=== PATIENT | female | born 1960 | race Caucasian/White ===

== ENCOUNTER 2017-10-15 15:59 | Inpatient (IN) ==
[2017-10-15] MEDS ORDERED: NS 1,000 ML IV ONE (16:18)
[2017-10-15] MEDS ORDERED: CEFEPIME 1 GM in NS 100 ML IV ONE (16:18)
[2017-10-15] MEDS: SALINE FLUSH 10ml SYRINGE IVF PRN (16:25)
--- NOTE | 2017-10-15 17:04 | XRay Report ---
Indication: left knee pain swelling PROCEDURE: XR knee LT 3V: Encounter: Initial Comparison: None Findings: There is no acute fracture, dislocation or malalignment identified. Prior internally fixed patellar fracture with an ununited fragment from the inferior pole. Mild osteoarthritis. No obvious joint effusion. Impression: No acute osseous abnormality. .
--- NOTE | 2017-10-15 17:20 | Emergency Department Report ---
Extremity Problem HPI - General Chief complaint: Extremity Problem,Nontraumatic Stated complaint: possible infection knee - Related Data Home Medications Medication Instructions Recorded Confirmed Acetaminophen 650 mg PO TID 10/15/17 10/15/17 Acetaminophen [Acetaminophen Extra 1,000 mg PO Q8H PRN 10/15/17 10/15/17 Strength] Artificial Tears [Tears Naturale] 2 drops EACH EYE BID PRN 10/15/17 10/15/17 Aspirin [Low Dose Aspirin EC] 81 mg PO DAILY 10/15/17 10/15/17 Bisacodyl EC TAB [Dulcolax] 10 mg PO DAILY 10/15/17 10/15/17 Bisacodyl Supp [Dulcolax] 10 mg RECTALLY PRN PRN 10/15/17 10/15/17 Cetirizine HCl [Zyrtec] 10 mg PO DAILY 10/15/17 10/15/17 Divalproex Sodium [Depakote] 1,000 mg PO 10/15/17 10/15/17 Divalproex Sodium [Depakote] 1,500 mg PO HS 10/15/17 10/15/17 Guaifenesin Oral Liq [Robitussin 200 mg PO Q4H PRN 10/15/17 10/15/17 Liq] Ibuprofen [Ibu] 600 mg PO BID 10/15/17 10/15/17 Ibuprofen [Ibu] 600 mg PO Q8H PRN 10/15/17 10/15/17 Insulin Aspart [Novolog Flexpen] 3 unit SQ WS 10/15/17 10/15/17 Insulin Aspart [Novolog Flexpen] 5 unit SQ BIDBL 10/15/17 10/15/17 Levofloxacin [Levaquin] 250 mg PO HS 10/15/17 10/15/17 Mag Hydrox/Aluminum Hyd/Simeth 30 ml PO Q4H PRN 10/15/17 10/15/17 [Alum-Mag Hydroxide-Simeth Liq] Magnesium Citrate [Citroma] 296 ml PO Q2D PRN 10/15/17 10/15/17 Magnesium Hydroxide [Milk of 30 ml PO DAILY PRN 10/15/17 10/15/17 Magnesia] Magnesium Hydroxide [Milk of 30 ml PO MOWEFR 10/15/17 10/15/17 Magnesia] Metformin HCl [Glucophage] 1,000 mg PO BID 10/15/17 10/15/17 Quetiapine Fumarate [Seroquel] 300 mg PO TID 10/15/17 10/15/17 Simvastatin [Zocor] 40 mg PO HS 10/15/17 10/15/17 Tramadol [Ultram] 50 mg PO Q4-6HPRN PRN 10/15/17 10/15/17 Ziprasidone HCl [Geodon] 40 mg PO WL 10/15/17 10/15/17 Ziprasidone HCl [Geodon] 80 mg PO BID 10/15/17 10/15/17 Allergies Allergy/AdvReac Type Severity Reaction Status Date / Time haloperidol [From Haldol] Allergy Verified 10/15/17 16:48 lithium Allergy Verified 10/15/17 16:48 Penicillins Allergy Verified 10/15/17 16:48 Sulfa (Sulfonamide Allergy Verified 10/15/17 16:48 Antibiotics) tetracycline Allergy Verified 10/15/17 16:48 PFS Patient Stated Medical History Other Cardiology Yes: hyperlipidemia Diabetes Mellitus Type 2 Yes Other GI Yes: constipation Other Musculoskeletal Yes: osteopenia,osteochondrosis(rt. foot) Other Infectious Yes: knee infection Schizophrenia Yes: schizo affective - Social History Smoking status: Current every day smoker Course Vital Signs Temperature 98.2 F 10/15/17 16:00 Pulse Rate 118 H 10/15/17 16:00 Respiratory Rate 20 10/15/17 16:00 Blood Pressure 131/58 10/15/17 16:00 Pulse Oximetry 94 10/15/17 16:00 Temperature 98.2 F 10/15/17 16:00 Pulse Rate 118 H 10/15/17 16:00 Respiratory Rate 20 10/15/17 16:00 Blood Pressure 131/58 10/15/17 16:00 Pulse Oximetry 94 10/15/17 16:00 Extremity Problem, Nontraumati - Lab Data Result diagrams: 10/15/17 16:26 10/15/17 16:26 Lab Results 10/15/17 10/15/17 Range/Units 16:26 16:26 WBC 9.9 (4.5-11.0) T/MM3 RBC 3.42 L (4.00-5.20) M/MM3 Hgb 12.0 (12-16) GM/DL Hct 35.0 L (36-46) % MCV 102.3 H (80-100) UM3 MCH 35.1 H (26-34) UUG MCHC 34.3 (31-37) GM/DL RDW Std Deviation 48.3 (36.9-50.2) FL Plt Count 250 (130-400) T/MM3 MPV 9.8 (9.4-12.4) UM3 Immature Gran % (Auto) Not performed Neut % (Auto) Not performed Lymph % (Auto) Not performed [place] % (Auto) Not performed Eos % (Auto) Not performed Baso % (Auto) Not performed Neut # (Auto) Not performed Lymph # (Auto) Not performed [place] # (Auto) Not performed Eos # (Auto) Not performed Baso # (Auto) Not performed Abs Immat Gran (auto) Not performed Turbidity < 20 (0-20) Sodium 136 (136-146) MEQ/L Potassium 3.6 (3.6-5) MEQ/L Chloride 99 (98-107) MEQ/L Carbon Dioxide 20 L (22-30) MEQ/L Anion Gap 17 H (5-15) meq/L BUN 9.0 (7-17) MG/DL Creatinine 0.7 (0.7-1.2) mg/dL GFR Calculation 86 BUN/Creatinine Ratio 13 (6-26) RATIO Glucose 347 H (65-110) MG/DL Calculated Osmolality 275 (261-280) MOSM/KG Calcium 8.8 (8.4-10.2) MG/DL Total Bilirubin 0.40 (0.20-1.30) MG/DL Icterus Index < 2 (0-7) AST 14 (14-36) U/L ALT 13 (1-35) U/L Alkaline Phosphatase 62 (38-126) U/L C-Reactive Protein 176.6 H (0-9) mg/L Total Protein 6.5 (6.3-8.2) g/dL Albumin 3.6 (3.5-5.0) g/dL Globulin 2.9 (2.4-3.6) G/DL Albumin/Globulin Ratio 1.2 (1.1-2.2) RATIO Plasma Lactate 5.2 H* (0.6-2.2) MMOL/L Specimen Hemolysis < 15 (0-25) Disposition Clinical Impression: Cellulitis of left lower extremity Sepsis Qualifiers: Sepsis type: sepsis due to unspecified organism Qualified Code(s): A41.9 - Sepsis, unspecified organism Disposition: 02 To [facility] [place] [facility] [place] Care Condition: Stable Prescriptions: No Action Bisacodyl Supp [Dulcolax] 10 mg RECTALLY PRN PRN PRN Reason: Constipation Magnesium Citrate [Citroma] 296 ml PO Q2D PRN PRN Reason: Constipation Artificial Tears [Tears Naturale] 2 drops EACH EYE BID PRN PRN Reason: Dry Eyes Ibuprofen [Ibu] 600 mg PO Q8H PRN PRN Reason: Pain Magnesium Hydroxide [Milk of Magnesia] 30 ml PO MOWEFR Simvastatin [Zocor] 40 mg PO HS Divalproex Sodium [Depakote] 1,500 mg PO HS Acetaminophen 650 mg PO TID Quetiapine Fumarate [Seroquel] 300 mg PO TID Insulin Aspart [Novolog Flexpen] 5 unit SQ BIDBL Insulin Aspart [Novolog Flexpen] 3 unit SQ WS Ziprasidone HCl [Geodon] 80 mg PO BID Metformin HCl [Glucophage] 1,000 mg PO BID Magnesium Hydroxide [Milk of Magnesia] 30 ml PO DAILY PRN PRN Reason: Constipation Ziprasidone HCl [Geodon] 40 mg PO WL Levofloxacin [Levaquin] 250 mg PO HS Acetaminophen [Acetaminophen Extra Strength] 1,000 mg PO Q8H PRN PRN Reason: Pain Bisacodyl EC TAB [Dulcolax] 10 mg PO DAILY Aspirin [Low Dose Aspirin EC] 81 mg PO DAILY Cetirizine HCl [Zyrtec] 10 mg PO DAILY Divalproex Sodium [Depakote] 1,000 mg PO WB Mag Hydrox/Aluminum Hyd/Simeth [Alum-Mag Hydroxide-Simeth Liq] 30 ml PO Q4H PRN PRN Reason: Prn Orders Guaifenesin Oral Liq [Robitussin Liq] 200 mg PO Q4H PRN PRN Reason: Cough Tramadol [Ultram] 50 mg PO Q4-6HPRN PRN PRN Reason: Pain Ibuprofen [Ibu] 600 mg PO BID Referrals: Humaira Carranza MD [Primary Care Provider] - Time of Disposition: 17:23 - Seen By: physician
[2017-10-15 18:01] VITALS: BMI 37.0
--- NOTE | 2017-10-15 18:02 | History & Physical Report ---
History of Present Illness Date: 10/15/17 Chief complaint: left knee pain HPI: Maria Fernanda Goldberg is a 57 y/o lady with schizophrenia, who resides at [facility] in [place]. She has at least a 3-month history of left knee infection, and in Jun and July of this year cultures have grown out SHOSHANA. She was treated with a 10-day course of Levaquin in July. Maria Fernanda is an unreliable historian, and records from her residence indicate that she is oriented to self only. Staff report that she has had more delusions over the last 2 weeks (i.e. thinking her mother is Cris Lucia). On 10/12/17, she stopped bearing weight on her left leg, and an open area started having purulent drainage. A culture was obtained on 10/13/17 and preliminary results are showing staph aureus. She was started on Levaquin 250 mg daily on 10/14/17. Staff deny any known fever or chills. The patient denies any other symptoms including headache, weakness, dizziness, sinus/URI sx/cough, sore throat, chest pain, dyspnea, abdominal pain , appetite changes, n/v/d/c, urinary problems. When I inquired about previous knee surgery she described an injury in which she was carrying medical charts and her knee hit the floor, but did not answer appropriately about the surgical intervention. Likewise, while trying to elicit PM&SH, she informed me that she needs to be scheduled for a "blastima" (an appendectomy) and she's already had a "clostima" (a procedure that begins after a woman turns 40 which includes drinking liquids to have babies followed by getting "cathecized"). She was evaluated in the ED, WBC normal at 9.9; bands 23%. Lactate was 5.2 and CRP 176.6. She was given Cefepime in the ED and the 30 ml/kg fluid bolus was started for septic shock. She was admitted to the hospitalist service, inpatient status. Review of Systems ROS unobtainable: due to mental status (limited/unreliable ROS) Past Medical History Medical History Updates: Schizoaffective disorder. DM type 2. Constipation. Allergic rhinitis. HTN. Hyperlipidemia. Osteopenia. Vit D deficiency. Osteochondrosis right foot Surgical History: Left patellar ORIF Family History: Unable to Obtain - Social History Smoking status: Current every day smoker Packs per day: 1 Substance use type: does not use Alcohol intake frequency: does not drink Current occupational status: disabled Medications Home Medications Medication Instructions Recorded Confirmed Type Acetaminophen 650 mg PO TID 10/15/17 10/15/17 History Acetaminophen [Acetaminophen Extra 1,000 mg PO Q8H PRN 10/15/17 10/15/17 History Strength] Artificial Tears [Tears Naturale] 2 drops EACH EYE BID PRN 10/15/17 10/15/17 History Aspirin [Low Dose Aspirin EC] 81 mg PO DAILY 10/15/17 10/15/17 History Bisacodyl EC TAB [Dulcolax] 10 mg PO DAILY 10/15/17 10/15/17 History Bisacodyl Supp [Dulcolax] 10 mg RECTALLY PRN PRN 10/15/17 10/15/17 History Cetirizine HCl [Zyrtec] 10 mg PO DAILY 10/15/17 10/15/17 History Divalproex Sodium [Depakote] 1,000 mg PO WB 10/15/17 10/15/17 History Divalproex Sodium [Depakote] 1,500 mg PO HS 10/15/17 10/15/17 History Guaifenesin Oral Liq [Robitussin 200 mg PO Q4H PRN 10/15/17 10/15/17 History Liq] Ibuprofen [Ibu] 600 mg PO BID 10/15/17 10/15/17 History Ibuprofen [Ibu] 600 mg PO Q8H PRN 10/15/17 10/15/17 History Insulin Aspart [Novolog Flexpen] 3 unit SQ WS 10/15/17 10/15/17 History Insulin Aspart [Novolog Flexpen] 5 unit SQ BIDBL 10/15/17 10/15/17 History Levofloxacin [Levaquin] 250 mg PO HS 10/15/17 10/15/17 History Mag Hydrox/Aluminum Hyd/Simeth 30 ml PO Q4H PRN 10/15/17 10/15/17 History [Alum-Mag Hydroxide-Simeth Liq] Magnesium Citrate [Citroma] 296 ml PO Q2D PRN 10/15/17 10/15/17 History Magnesium Hydroxide [Milk of 30 ml PO DAILY PRN 10/15/17 10/15/17 History Magnesia] Magnesium Hydroxide [Milk of 30 ml PO MOWEFR 10/15/17 10/15/17 History Magnesia] Metformin HCl [Glucophage] 1,000 mg PO BID 10/15/17 10/15/17 History Quetiapine Fumarate [Seroquel] 300 mg PO TID 10/15/17 10/15/17 History Simvastatin [Zocor] 40 mg PO HS 10/15/17 10/15/17 History Tramadol [Ultram] 50 mg PO Q4-6HPRN PRN 10/15/17 10/15/17 History Ziprasidone HCl [Geodon] 40 mg PO WL 10/15/17 10/15/17 History Ziprasidone HCl [Geodon] 80 mg PO BID 10/15/17 10/15/17 History Allergies Allergy/AdvReac Type Severity Reaction Status Date / Time haloperidol [From Haldol] Allergy Verified 10/15/17 16:48 lithium Allergy Verified 10/15/17 16:48 Penicillins Allergy Verified 10/15/17 16:48 Sulfa (Sulfonamide Allergy Verified 10/15/17 16:48 Antibiotics) tetracycline Allergy Verified 10/15/17 16:48 Exam Vital Signs: Temperature 98.2 F 10/15/17 16:00 Pulse Rate 103 H 10/15/17 17:36 Respiratory Rate 20 10/15/17 17:36 Blood Pressure 136/70 10/15/17 17:36 Pulse Oximetry 93 10/15/17 17:36 - Constitutional Present: no acute distress, well nourished, well developed, obese - Routine HEENT Exam Head: Present: normocephalic Eye: Present: PERRL. Absent: conjunctival icterus, scleral injection ENT: Present: mucous membranes moist - Routine Neck Exam Present: supple, lymphadenopathy (mild anterior cervical) - Routine Respiratory Exam Present: CTA bilaterally - Routine Cardiovascular Exam Present: RRR, S1, S2 - Routine Abdominal Exam Present: soft, normoactive bowel sounds, non distended, non tender - Routine Extremities Exam Present: edema (4+ on right; 1+ on left), normal capillary refill - Routine Skin Exam Present: dry, warm, wounds (central clearing approx 1 cm diameter overlying inferior portion of left patella; large sagittal scar to left knee. Left knee is warm with an effusion, minimal erythema.) - Routine Neurological Exam Present: alert, altered mental status. Absent: oriented X3 (self) - Routine Psychiatric Exam Present: cooperative. Absent: normal thought process Results - Labs CBC & Chem 7: 10/15/17 16:26 10/15/17 16:26 - Imaging and Cardiology left knee Status: image reviewed by me Additional comments: prior left patellar ORIF no acute findings Assessment and Plan (1) Septic shock Current visit: Yes Status: Acute Assessment and Plan: Assessment Septic shock - lactate >5; SIRS = bandemia, tachycardia Septic joint, left knee, history of SHOSHANA infection Schizoaffective disorder DM type 2 Constipation Allergic rhinitis HTN Hyperlipidemia Osteopenia Vit D deficiency Osteochondrosis right foot Plan Admit, inpatient status under the hospitalist service. PCP: Dr. Carranza. Septic shock secondary to septic left knee -30 ml/kg fluid bolus ordered -recheck lactate to ensure downward trend -start vanco/cefepime for coverage -follow results of culture from 10/13/17 -consults placed for Dr. Loera & Dr. Leahy on 10/18/17 -recheck crp and procalcitonin on 10/17/17 -will likely need pt/ot eval prior to discharge DM2 -monitor sugars -resume meds schizoaffective d/o -home meds resumed Outside records reviewed. Discussed with Dr. Nugent, Dr. Black, and facility staff. DVT Prophylaxis: Lovenox Resuscitation Status: Full Code - Physician Narrative Physician: Marianela Black MD Narrative: Date: 10/15/17 Time: 2209 I have independently evaluated and examined this patient. I reviewed the chart, the patient's history, and the [employer] TECHNICIAN/PA's documented findings as above. We discussed and formulated the assessment and plan as above with additions as below: Mrs. Goldberg was seen shortly after arriving on the floor. She provided no meaningful history although was able to tell me that her knee surgery was done in [place] although when remains unclear. The majority of the time she rambles nonsensically. She denied pain when the left leg was palpated. Respirations were nonlabored with good airflow and clear breath sounds anteriorly and laterally; regular cardiac rhythm Small wound over the left patella as noted, no drainage can be expressed at present +1 edema right lower extremity, +3 edema left lower extremity with mild erythema mid and lower left rowe Lactic acid 5.2-1.4; procalcitonin <0.05; CRP 176.6; 23% bands with total white count 9.9 Blood sugar elevated Venous Doppler negative; x-ray of the left knee reviewed by myself-wire cage around patella but no significant fluid in the joint and no free air. Septic shock, likely due to's soft tissue infection; probable hardware infection left knee. Outpatient culture of the left knee on 10/13 positive for staph aureus- sensitivities pending; prior cultures on 07/31 and 08/09 this year were positive for oxacillin sensitive staph. Continue vancomycin for staph aureus pending sensitivities-anticipate conversion to Ancef if oxacillin sensitive. Continue gram-negative coverage with cefepime as initiated in the ER. Will discuss with patient's guardian- anticipate need for orthopedic consultation and possible surgical removal of patella/hardware. Discussed with Dr. Nugent earlier today. Hospital Course Summary Disclaimer: The visit summary below is not to be considered part of the above Progress Note. Hospital Course: 10/15 Admit, inpatient status under the hospitalist service. PCP: Dr. Carranza. Septic shock secondary to septic left knee -30 ml/kg fluid bolus ordered -recheck lactate to ensure downward trend -start vanco/cefepime for coverage -follow results of culture from 10/13/17 -consults placed for Dr. Loera & Dr. Leahy on 10/18/17 -recheck crp and procalcitonin on 10/17/17 -will likely need pt/ot eval prior to discharge DM2 -monitor sugars -resume meds schizoaffective d/o -home meds resumed
[2017-10-15] MEDS: NS 1,000 ML IV SCH ×2 (18:12→20:45)
[2017-10-15] MEDS ORDERED: MORPHINE SULFATE 4mg INJECTION IVP PRN (18:16)
[2017-10-15] MEDS ORDERED: ONDANSETRON 4 MG/2 ML INJECTION IVP PRN (18:16)
[2017-10-15] MEDS ORDERED: NICOTINE 21 MG PATCH TD PRN (18:16)
[2017-10-15] MEDS ORDERED: ACETAMINOPHEN 325 MG TABLET PO PRN (18:16)
[2017-10-15] MEDS ORDERED: MAGNESIUM CITRATE 296ml PO PRN (18:19)
[2017-10-15] MEDS ORDERED: NON-FORMULARY MEDICATION 1 EACH EACH (Mag Hydrox/Aluminum Hyd/Simeth [Alum-Mag Hydroxide-S PO PRN (18:19)
[2017-10-15] MEDS ORDERED: ARTIFICIAL TEARS 15ml EACH EYE PRN (18:19)
[2017-10-15] MEDS ORDERED: GUAIFENESIN 200mg/10ml ORAL LIQUID PO PRN (18:19)
[2017-10-15] MEDS ORDERED: ACETAMINOPHEN 500 MG TABLET PO PRN (18:19)
[2017-10-15] MEDS ORDERED: BISACODYL 10 MG SUPPOSITORY RECTALLY PRN (18:19)
[2017-10-15] MEDS: METFORMIN 1,000 MG TABLET PO SCH (19:05)
[2017-10-15] MEDS ORDERED: QUETIAPINE FUMARATE 300 MG PO SCH (21:00)
[2017-10-15] MEDS ORDERED: ZIPRASIDONE HCL 80 MG PO SCH (21:00)
[2017-10-15] MEDS: ACETAMINOPHEN 325 MG TABLET PO SCH (21:04)
[2017-10-15] MEDS: DIVALPROEX 500 MG TABLET PO SCH (21:05)
[2017-10-15] MEDS: SIMVASTATIN 40 MG TABLET PO SCH (21:06)
[2017-10-15] MEDS: ZIPRASIDONE 40 MG CAPSULE PO SCH (21:06)
[2017-10-15] MEDS: QUETIAPINE 200 MG TABLET PO SCH (21:06)
[2017-10-15] MEDS: CEFEPIME 1 GM in NS 100 ML IV SCH (23:11)
[2017-10-16] MEDS: CEFEPIME 1 GM in NS 100 ML IV SCH ×2 (05:33→11:34)
[2017-10-16] MEDS ORDERED: NON-FORMULARY MEDICATION 1 EACH EACH (Insulin Aspart [Novolog Flexpen] 5 UNIT) SQ SCH (08:00)
[2017-10-16] MEDS: QUETIAPINE 200 MG TABLET PO SCH ×3 (08:33→20:31)
[2017-10-16] MEDS: ACETAMINOPHEN 325 MG TABLET PO SCH ×3 (08:34→20:31)
[2017-10-16] MEDS: METFORMIN 1,000 MG TABLET PO SCH ×2 (08:34→18:04)
[2017-10-16] MEDS: DIVALPROEX 500 MG TABLET PO SCH ×2 (08:34→20:30)
[2017-10-16] MEDS: Bisacodyl EC TAB 5 MG TABLET PO SCH (08:34)
[2017-10-16] MEDS: CETIRIZINE 10 MG TABLET PO SCH (08:34)
[2017-10-16] MEDS: POLYETHYL GLYCOL 3350 17gm PACKET PO SCH (08:35)
[2017-10-16] MEDS: INSULIN ASPART 100unit/ml INJECTION SQ SCH ×3 (08:35→18:04)
[2017-10-16] MEDS: ENOXAPARIN 40 MG/0.4 ML INJECTION SQ SCH (08:35)
[2017-10-16] MEDS: ZIPRASIDONE 40 MG CAPSULE PO SCH ×3 (08:35→20:31)
[2017-10-16] MEDS: ASPIRIN *EC* 81 MG TABLET PO SCH (08:35)
--- NOTE | 2017-10-16 09:19 | Operative Note ---
Orthopedic Procedures - Joint Aspiration/Injection Joint Aspiration/Injection 1 Side of body: left Joint aspirated: knee Ultrasound guidance: No Skin prep: Chlorhexidine Local anesthesia used: lidocaine 1% Amount of anesthesia used (mL): 4 Needle size used: 18G Fluid obtained: turbid Total fluid obtained (mL): 50 Patient tolerated procedure: well, no complications Complications: none
--- NOTE | 2017-10-16 11:00 | Pharmacy Consult-Antibiotics ---
Pharmacy Consult-Vancomycin - Laboratory Information WBC 10.0 T/MM3 (4.5-11.0) 10/16/17 04:44 BUN 8.0 MG/DL (7-17) 10/16/17 04:44 Creatinine 0.7 mg/dL (0.7-1.2) 10/16/17 04:44 Procalcitonin < 0.05 NG/ML 10/15/17 16:26 - Consult Information Vancomycin Consult: Vancomycin DAY 1 I started the Vancomycin at 1,250 mg i.v. every 12 hours but the Cr Cl improved so I changed the Vancomycin to 1,250 mg iv every 8 hours. Thanks for the Vancomycin Protocol, Andrés Galvin, Pharmacist.
--- NOTE | 2017-10-16 15:31 | Progress Note ---
- Date 10/16/17 Subjective: Maria Fernanda was resting comfortably when seen this afternoon. She has slept most of the day and nursing describes excessive somnolence compared to yesterday's hyperverbal state. She was reported to of slept well overnight. The patient awakened briefly and was able to tolerate that she had pain in "the usual place " pointing toward her left knee and to deny dyspnea or nausea. Nursing reports that she ate reasonably well earlier today and has been incontinent of urine. Objective Vital signs: Temperature 99.2 F 10/16/17 15:20 Pulse Rate 103 H 10/16/17 15:20 Respiratory Rate 22 10/16/17 15:20 Blood Pressure 138/74 10/16/17 15:20 Pulse Oximetry 93-RA 10/16/17 15:20 NAD, drowsy, return to sleep after answering a couple of questions Facial structure symmetric, conjunctiva clear Respirations nonlabored, good airflow, anterior breath sounds clear Regular rhythm, S1-S2 Abdomen soft, nontender, bowel sounds present +3 edema left lower extremity, faint erythema mid lower leg, left knee with mild soft tissue swelling Oriented to "hospital", did not respond to other questions regarding date. Height/Weight/BMI: Height 1.63 m Weight 98.5 kg Body Mass Index 37.0 Results - Labs CBC & Chem 7: 10/16/17 04:44 10/16/17 04:44 Microbiology Results: Microbiology 10/16/17 09:17 Aspirate, Left Knee Gram Stain -few gram-positive cocci, moderate neutrophils 10/16/17 09:17 Aspirate, Left Knee Body Fluid Culture - Preliminary Culture Initiated - Results Pending Blood culture 1 drawn yesterday positive for staph aureus Wound culture left knee from 10/13/17 positive oxacillin sensitive staph aureus Assessment and Plan (1) Septic shock Current visit: Yes Status: Acute Assessment and Plan: Assessment Septic shock - lactate >5; SIRS = bandemia, tachycardia Staph aureus bacteremia Septic joint, left knee, history of SHOSHANA infection Schizoaffective disorder DM type 2 Constipation Allergic rhinitis HTN Hyperlipidemia Osteopenia Vit D deficiency Osteochondrosis right foot Plan Hemodynamically stable overnight, recent wound culture and blood culture on admission positive for staph aureus. Knee aspirated with gram-positive cocci. Dr. Loera to see on Wednesday, or throat consultation initiated today. May require RAMO. Continue vancomycin-attempting to obtain further information regarding nature of patient's penicillin allergy. Guardian has no information. Repeat blood cultures in a.m. Discontinue cefepime. Repeat CRP/procalcitonin in a.m. Blood sugars improving, continue to monitor. Excessive somnolence today, Geodon and Seroquel doses reviewed-[facility]. Continue to monitor closely prior to dose modification as guardian reports patient can be uncontrolled at facility. Mildly macrocytic-B12 to be screened. Telemetry reviewed by myself-sinus rhythm DVT Prophylaxis: Lovenox Resuscitation Status: Full Code - Physician Narrative Narrative: Date: 10/16/17 Time: 1524 Hospital Course Summary Disclaimer: The visit summary below is not to be considered part of the above Progress Note. Hospital Course: 10/15/17 Admit, inpatient status under the hospitalist service. PCP: Dr. Carranza. Septic shock secondary to septic left knee -30 ml/kg fluid bolus ordered -recheck lactate to ensure downward trend -start vanco/cefepime for coverage -follow results of culture from 10/13/17 -consults placed for Dr. Loera & Dr. Leahy on 10/18/17 -recheck crp and procalcitonin on 10/17/17 -will likely need pt/ot eval prior to discharge DM2 -monitor sugars -resume meds schizoaffective d/o -home meds resumed 10/16/17 Hemodynamically stable overnight, recent wound culture and blood culture on admission positive for staph aureus. Knee aspirated with gram-positive cocci. Dr. Loera to see on Wednesday, or throat consultation initiated today. May require RAMO. Continue vancomycin-attempting to obtain further information regarding nature of patient's penicillin allergy. Guardian has no information. Discontinue cefepime.
[2017-10-16] MEDS ORDERED: INSULIN ASPART 3 UNIT SQ SCH (17:30)
--- NOTE | 2017-10-16 18:29 | Orthopedic Consult Note ---
Orthopedic Consultation HPI - Consultation Info Consult Date: 10/16/17 Attending Physician: Marianela Black MD Consult Reason: joint pain - History of Present Illness Maria Fernanda Goldberg is a 57 y/o lady with schizophrenia, who resides at [facility] in [place]. On 10/12/17, she stopped bearing weight on her left leg, and an open area on the anterior surface of the patella started having purulent drainage. A culture was obtained on 10/13/17 and preliminary results are showing staph aureus. She was started on Levaquin 250 mg daily on 10/14/17. Staff deny any known fever or chills. She had a patella fracture that was surgically wired , but she was not able to tell me when or where this was done. She has at least a 3-month history of "left knee" infection with a positive culture growing out SHOSHANA in Jun or July. I was not able to find if this was superficial or involving the joint. She was treated with a 10-day course of Levaquin in July. Maria Fernanda is an unreliable historian, and records from her residence indicate that she is oriented to self only. Staff at [facility] report that she has been more delusions over the last 2 weeks (i.e. thinking her mother is Cris Lucia). 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 Review of Systems ROS unobtainable: due to mental status, other (unreliable due to mental status.) [facility] Patient Stated Medical History Other Cardiology Yes: hyperlipidemia Diabetes Mellitus Type 2 Yes Other GI Yes: constipation Other Musculoskeletal Yes: osteopenia,osteochondrosis(rt. foot) Other Infectious Yes: knee infection-current Schizophrenia Yes: schizo affective Other Reproductive Yes: states has 4 kids-vaginally Medical History Updates: Schizoaffective disorder. DM type 2. Constipation. Allergic rhinitis. HTN. Hyperlipidemia. Osteopenia. Vit D deficiency. Osteochondrosis right foot Surgical History: Left patellar ORIF - Social History Smoking status: Current every day smoker Packs per day: 1 Substance use type: does not use Alcohol intake frequency: does not drink Current occupational status: disabled Medications Home Medications Medication Instructions Recorded Confirmed Type Acetaminophen 650 mg PO TID 10/15/17 10/15/17 History Acetaminophen [Acetaminophen Extra 1,000 mg PO Q8H PRN 10/15/17 10/15/17 History Strength] Artificial Tears [Tears Naturale] 2 drops EACH EYE BID PRN 10/15/17 10/15/17 History Aspirin [Low Dose Aspirin EC] 81 mg PO DAILY 10/15/17 10/15/17 History Bisacodyl EC TAB [Dulcolax] 10 mg PO DAILY 10/15/17 10/15/17 History Bisacodyl Supp [Dulcolax] 10 mg RECTALLY PRN PRN 10/15/17 10/15/17 History Cetirizine HCl [Zyrtec] 10 mg PO DAILY 10/15/17 10/15/17 History Divalproex Sodium [Depakote] 1,000 mg PO WB 10/15/17 10/15/17 History Divalproex Sodium [Depakote] 1,500 mg PO HS 10/15/17 10/15/17 History Guaifenesin Oral Liq [Robitussin 200 mg PO Q4H PRN 10/15/17 10/15/17 History Liq] Ibuprofen [Ibu] 600 mg PO BID 10/15/17 10/15/17 History Ibuprofen [Ibu] 600 mg PO Q8H PRN 10/15/17 10/15/17 History Insulin Aspart [Novolog Flexpen] 3 unit SQ WS 10/15/17 10/15/17 History Insulin Aspart [Novolog Flexpen] 5 unit SQ BIDBL 10/15/17 10/15/17 History Levofloxacin [Levaquin] 250 mg PO HS 10/15/17 10/15/17 History Mag Hydrox/Aluminum Hyd/Simeth 30 ml PO Q4H PRN 10/15/17 10/15/17 History [Alum-Mag Hydroxide-Simeth Liq] Magnesium Citrate [Citroma] 296 ml PO Q2D PRN 10/15/17 10/15/17 History Magnesium Hydroxide [Milk of 30 ml PO DAILY PRN 10/15/17 10/15/17 History Magnesia] Magnesium Hydroxide [Milk of 30 ml PO MOWEFR 10/15/17 10/15/17 History Magnesia] Metformin HCl [Glucophage] 1,000 mg PO BID 10/15/17 10/15/17 History Quetiapine Fumarate [Seroquel] 300 mg PO TID 10/15/17 10/15/17 History Simvastatin [Zocor] 40 mg PO HS 10/15/17 10/15/17 History Tramadol [Ultram] 50 mg PO Q4-6HPRN PRN 10/15/17 10/15/17 History Ziprasidone HCl [Geodon] 40 mg PO WL 10/15/17 10/15/17 History Ziprasidone HCl [Geodon] 80 mg PO BID 10/15/17 10/15/17 History Allergies Allergy/AdvReac Type Severity Reaction Status Date / Time haloperidol [From Haldol] Allergy Verified 10/15/17 16:48 lithium Allergy Verified 10/15/17 16:48 Penicillins Allergy Verified 10/15/17 16:48 Sulfa (Sulfonamide Allergy Verified 10/15/17 16:48 Antibiotics) tetracycline Allergy Verified 10/15/17 16:48 Exam - Constitutional Vital Signs: Temperature 99.2 F 10/16/17 15:20 Pulse Rate 103 H 10/16/17 15:20 Respiratory Rate 22 10/16/17 15:20 Blood Pressure 138/74 10/16/17 15:20 Pulse Oximetry 93 10/16/17 15:20 General: cooperative, no acute distress Nutritional Appearance: overweight Orientation: alert Limitations: altered mental status (Pt says she is the Governor of [place].) - LLE General: no obvious deformity Knee: stable to ligament exam, +2 effusion, no deformity, varus deformity (Knee is warm with marked effusion.), other Knee Palpation: Tender to Palpation anterior (Wound on anterior knee over the patella. No erythema at this time.) Skin: no ecchymosis, wounds noted (Anterior knee over the mid-patella. No erythema but the skin is warm. Small <1cm area that appears to be healing.) Extension: 5 degrees Flexion: 60 degrees (Painful with ROM and pt not willing to move the knee much.) Ankle Range of Motion: normal ROM Neurological: no deficits, normal to light touch Vascular: dorsalis pedis pulse within normal limits - Labs Result Diagrams: 10/16/17 04:44 10/16/17 04:44 Abnormal lab results 10/15/17 10/16/17 10/16/17 Range/Units 18:53 04:44 04:44 RBC 3.74 L (4.00-5.20) M/MM3 MCV 100.5 H (80-100) UM3 Lymphocytes % (Manual) 18.0 L (23-45) % Monocytes % (Manual) 13.0 H (0-9.0) % Monocytes # (Manual) 1.3 H (0-0.8) T/MM3 Chloride 108 H D (98-107) MEQ/L Glucose 175 H (65-110) MG/DL Ur Specific [place] <=1.005 L (1.015-1.025) Urine Glucose (UA) 3+ A (NEGATIVE) H & H 10/16/17 Range/Units 04:44 Hgb 12.0 (12-16) GM/DL Hct 37.6 (36-46) % Impression and Recommendation (1) Infection of left knee Current visit: Yes Status: Acute Due to the appearance of the knee and marked effusion, I aspirated the knee this AM. The synovial fluid looked cloudy and I suspected it to be infected. Nucleated count was only 18,322 but the gram stain showed gram positive cocci. Her history is that of a 3-4 month history of infection so I don't think this is an acute process. She is on Vancomycin now and did receive some Cefepime on 10/15/17. Dr Loera is consulted. I discussed the case with Dr Leahy and he is tentatively planning to wash this out on Wednesday. Will also consider removing the hardware in the patella at the same time. Pt is on Lovenox and Dr Leahy is okay with keeping her on this even with tentative surgery on Wednesday. Hospital Course Summary Disclaimer: The visit summary below is not to be considered part of the above Progress Note. Hospital Course: 10/15/17 Admit, inpatient status under the hospitalist service. PCP: Dr. Carranza. Septic shock secondary to septic left knee -30 ml/kg fluid bolus ordered -recheck lactate to ensure downward trend -start vanco/cefepime for coverage -follow results of culture from 10/13/17 -consults placed for Dr. Loera & Dr. Leahy on 10/18/17 -recheck crp and procalcitonin on 10/17/17 -will likely need pt/ot eval prior to discharge DM2 -monitor sugars -resume meds schizoaffective d/o -home meds resumed 10/16/17 Hemodynamically stable overnight, recent wound culture and blood culture on admission positive for staph aureus. Knee aspirated with gram-positive cocci. Dr. Loera to see on Wednesday, or throat consultation initiated today. May require RAMO. Continue vancomycin-attempting to obtain further information regarding nature of patient's penicillin allergy. [facility] has no information. Discontinue cefepime.
[2017-10-16] MEDS: SIMVASTATIN 40 MG TABLET PO SCH (20:30)
[2017-10-17] MEDS: TRAMADOL 50 MG TABLET PO PRN ×3 (02:50→20:34)
[2017-10-17] MEDS: DIVALPROEX 500 MG TABLET PO SCH ×2 (09:12→20:36)
[2017-10-17] MEDS: ASPIRIN *EC* 81 MG TABLET PO SCH (09:12)
[2017-10-17] MEDS: QUETIAPINE 200 MG TABLET PO SCH ×3 (09:12→20:35)
[2017-10-17] MEDS: ACETAMINOPHEN 325 MG TABLET PO SCH ×3 (09:13→20:33)
[2017-10-17] MEDS: INSULIN ASPART 100unit/ml INJECTION SQ SCH ×3 (09:13→18:29)
[2017-10-17] MEDS: Bisacodyl EC TAB 5 MG TABLET PO SCH (09:14)
[2017-10-17] MEDS: CETIRIZINE 10 MG TABLET PO SCH (09:14)
[2017-10-17] MEDS: ENOXAPARIN 40 MG/0.4 ML INJECTION SQ SCH (09:15)
[2017-10-17] MEDS: POLYETHYL GLYCOL 3350 17gm PACKET PO SCH (09:16)
[2017-10-17] MEDS: ZIPRASIDONE 40 MG CAPSULE PO SCH ×3 (09:17→20:37)
--- NOTE | 2017-10-17 10:54 | Orthopedic Progress Note ---
Date: Date: 10/17/17 Time: 1051 Subjective/Severity of Illness: Maria Fernanda is resting in bed. The knee is painful with movement and she doesn't want to move much. She had SA in her blood on admission. Knee aspirate shows gm + cocci on gram stain but nothing growing yet on culture. Pt has wire in her patella from an old fixation and has a healing sore on top of the patella. Tentatively planning surgery on Wednesday to wash out the knee and possibly remove the wire from the patella. Dr Leahy will discuss this with her tomorrow. Exam - Constitutional Vital Signs: Temperature 97.5 F 10/17/17 01:00 Pulse Rate 95 10/17/17 07:03 Respiratory Rate 20 10/17/17 07:03 Blood Pressure 136/79 10/17/17 07:03 Pulse Oximetry 92 10/17/17 07:03 General: cooperative, no acute distress Nutritional Appearance: overweight Orientation: alert - LLE General: no obvious deformity Knee: +1 effusion (warm to touch. ) Knee Palpation: Tender to Palpation other (globally tender around the knee today.) Skin: no ecchymosis, wounds noted (healing wound anterior to the patella. No drainage. ) Flexion: other (Pt refuses to move the knee this AM.) Ankle Range of Motion: normal ROM Neurological: no deficits Vascular: dorsalis pedis pulse within normal limits - Labs Result Diagrams: 10/17/17 06:05 10/17/17 06:05 Abnormal lab results 10/16/17 10/17/17 10/17/17 Range/Units 09:17 06:05 06:05 RBC 3.50 L (4.00-5.20) M/MM3 Hgb 11.4 L (12-16) GM/DL Hct 34.9 L (36-46) % Neutrophils % (Manual) 72.0 H (33-66) % Lymphocytes % (Manual) 9.0 L (23-45) % Monocytes % (Manual) 16.0 H (0-9.0) % Metamyelocytes % 1.0 H (0-0) % Lymphocytes # (Manual) 0.9 L (1-4.8) T/MM3 Monocytes # (Manual) 1.6 H (0-0.8) T/MM3 Glucose 185 H (65-110) MG/DL C-Reactive Protein 245.4 H (0-9) mg/L Fluid Crystal Appear Cloudy A Fluid Crystal Color Pale yellow A H & H 10/16/17 10/17/17 Range/Units 04:44 06:05 Hgb 12.0 11.4 L (12-16) GM/DL Hct 37.6 34.9 L (36-46) % Orthopedic Assessment and Plan (1) Infection of left knee Status: Acute Assessment and Plan: Continue IV vanco. Await cultures. Dr Loera to see her tomorrow. Dr Leahy will evaluate her in the AM. Planning I&D of the knee and possible hardware removal from the patella on 10/18/17. Hospital Course Summary Disclaimer: The visit summary below is not to be considered part of the above Progress Note. Hospital Course: 10/15/17 Admit, inpatient status under the hospitalist service. PCP: Dr. Carranza. Septic shock secondary to septic left knee -30 ml/kg fluid bolus ordered -recheck lactate to ensure downward trend -start vanco/cefepime for coverage -follow results of culture from 10/13/17 -consults placed for Dr. Loera & Dr. Leahy on 10/18/17 -recheck crp and procalcitonin on 10/17/17 -will likely need pt/ot eval prior to discharge DM2 -monitor sugars -resume meds schizoaffective d/o -home meds resumed 10/16/17 Hemodynamically stable overnight, recent wound culture and blood culture on admission positive for staph aureus. Knee aspirated with gram-positive cocci. Dr. Loera to see on Wednesday, or throat consultation initiated today. May require RAMO. Continue vancomycin-attempting to obtain further information regarding nature of patient's penicillin allergy. [facility] has no information. Discontinue cefepime.
--- NOTE | 2017-10-17 12:02 | Ultrasound Report ---
Indication: pain and swelling left lower extremity PROCEDURE: US venous doppler LE LT: Encounter: Initial Comparison: None Technique: Color Doppler duplex and grayscale sonographic imaging of the left lower extremity was performed. Findings: There is no evidence for acute deep venous thrombosis in the left thigh. Specifically, serial graded compression was performed from the inguinal ligament to the popliteal bifurcation, on the left thigh, demonstrating appropriate compressibility of the deep venous system. In addition, color and pulsed Doppler demonstrate appropriate spontaneous flow, variation with respiration, and augmentation with calf compression. At the ankle, normal flow is identified in the posterior tibial veins; these vessels are also normal in caliber. Impression: No evidence of acute DVT in the left lower limb. There is a preliminary report by [facility]. .
[2017-10-17] MEDS: METFORMIN 1,000 MG TABLET PO SCH ×2 (12:34→18:30)
--- NOTE | 2017-10-17 13:25 | Pharmacy Consult-Antibiotics ---
Pharmacy Consult-Vancomycin - Laboratory Information WBC 10.2 T/MM3 (4.5-11.0) 10/17/17 06:05 BUN 10.0 MG/DL (7-17) 10/17/17 06:05 Creatinine 0.7 mg/dL (0.7-1.2) 10/17/17 11:26 Procalcitonin < 0.05 NG/ML 10/17/17 06:05 Vancomycin Trough 11.40 ug/mL (15-20) L 10/17/17 11:26 - Consult Information Vancomycin increased from 1250mg iv q8h to 1500mg iv q8h this afternoon due to low trough. Will continue to monitor. Thank you.
--- NOTE | 2017-10-17 14:16 | Progress Note ---
- Date 10/17/17 Subjective: Maria Fernanda is seen today in follow up. She is eating lunch (cereal), and is not happy that her telemetry box is getting in her way. She reports pain is fairly well controlled overall. Does not have any acute concerns. Is a poor historian. Irritable, but cooperative. Objective Vital signs: Temperature 97.5 F 10/17/17 01:00 Pulse Rate 95 10/17/17 07:03 Respiratory Rate 20 10/17/17 07:03 Blood Pressure 136/79 10/17/17 07:03 Pulse Oximetry 92 10/17/17 07:03 Height/Weight/BMI: Height 1.63 m Weight 98.9 kg Body Mass Index 37.0 Comments: Vitals reviewed- intermittent low grade tachycardia. - Constitutional Present: no acute distress, obese, cooperative - Routine HEENT Exam Head: Present: normocephalic, atraumatic Eye: Present: EOMI, PERRL ENT: Present: mucous membranes moist - Routine Respiratory Exam Present: CTA bilaterally, distant breath sounds. Absent: rales, rhonchi, wheezes - Routine Cardiovascular Exam Present: RRR, S1, S2, no murmur, tachycardia - Routine Abdominal Exam Present: soft, non distended, non tender - Routine Extremities Exam Present: tenderness, joint swelling (left knee) - Routine Musculoskeletal Exam Musculoskeletal: Present: limited range of motion (left knee. ) - Routine Skin Exam Present: intact, erythema (Left knee. Chronic vascular changes to LE ( discoloration)), dry, warm - Routine Neurological Exam Present: alert, moving all extremities - Routine Psychiatric Exam Present: cooperative. Absent: normal affect, normal thought process, good insight, good judgment Results - Labs CBC & Chem 7: 10/17/17 06:05 10/17/17 11:26 Microbiology Results: Microbiology 10/16/17 09:17 Aspirate, Left Knee Gram Stain - Final 10/16/17 09:17 Aspirate, Left Knee Body Fluid Culture - Preliminary Staphylococcus aureus 10/17/17 06:05 Peripheral/Iv Start Blood Culture - Preliminary Culture Initiated - Results Pending 10/17/17 06:12 Peripheral/Iv Start Blood Culture - Preliminary Culture Initiated - Results Pending- +Staph Aureus Assessment and Plan (1) Septic shock Current visit: Yes Status: Acute Assessment and Plan: Assessment Septic shock - lactate >5; SIRS = bandemia, tachycardia Staph aureus bacteremia Septic joint, left knee, history of SHOSHANA infection Schizoaffective disorder DM type 2 Constipation Allergic rhinitis HTN Hyperlipidemia Osteopenia Vit D deficiency Osteochondrosis right foot Plan: Patient is alert and feeling fairly well today. Continue Vancomycin. Ortho notes reviewed- potentially to OR on Wednesday for washout of knee and removal of patellar wire. NPO @ MN +1/2 BC on admission. Follow up BC NGTD. Await c/s on both cx. May need RAMO. Dr. Loera to be consulted in AM. Continue home psychiatric medications. Monitor carefully on Tramadol. Continue daily laxatives- no BM recorded since admission. Will need to monitor closely. BG is fairly well controlled. Hold metformin today after evening dose pending OR tomorrow. Will need to hold meal-time insulin when NPO. Will give single dose of Lantus in AM. Continue serial lab monitoring. Given the fact she is a bit tachycardic, will continue tele for now. DVT Prophylaxis: Lovenox Resuscitation Status: Full Code - Physician Narrative Physician: Marianela Black MD Narrative: Date: 10/17/17 Time: 1720 I have independently evaluated and examined this patient. I reviewed the chart, the patient's history, and the NUCLEAR PHYSICIAN/PA's documented findings as above. We discussed and formulated the assessment and plan as above with additions as below: Maria Fernanda reports that her left hip hurts but she minimized any symptoms in her left knee today. She complained of occasional cough but denied dyspnea or fever and no elevated temperatures have been reported since admission. She's not had a bowel movement since admission. NAD, appeared to be resting when I arrived but awoke to voice and responded to questions appropriately-respirations nonlabored, decreased airflow, breath sounds clear anteriorly Regular rhythm, +1 edema RLE, +2-3 LLE-small dry wound over left patella Repeat blood cultures drawn this morning; sensitivities pending on blood culture -anticipate SHOSHANA based on multiple other cultures. CRP increasing, vancomycin level low-dose adjusted. Discussed with or ortho, possible patellar wire removal in OR tomorrow. Preop EKG ordered. Telemetry reviewed-consistently sinus rhythm; nursing notes that telemetry pack is irritating patient-discontinue. Hospital Course Summary Disclaimer: The visit summary below is not to be considered part of the above Progress Note. Hospital Course: 10/15/17 Admit, inpatient status under the hospitalist service. PCP: Dr. Carranza. Septic shock secondary to septic left knee -30 ml/kg fluid bolus ordered -recheck lactate to ensure downward trend -start vanco/cefepime for coverage -follow results of culture from 10/13/17 -consults placed for Dr. Loera & Dr. Leahy on 10/18/17 -recheck crp and procalcitonin on 10/17/17 -will likely need pt/ot eval prior to discharge DM2 -monitor sugars -resume meds schizoaffective d/o -home meds resumed 10/16/17 Hemodynamically stable overnight, recent wound culture and blood culture on admission positive for staph aureus. Knee aspirated with gram-positive cocci. Dr. Loera to see on Wednesday, or throat consultation initiated today. May require RAMO. Continue vancomycin-attempting to obtain further information regarding nature of patient's penicillin allergy. [facility] has no information. Discontinue cefepime. 10/17/17 Patient is alert and feeling fairly well today. Continue Vancomycin. Ortho notes reviewed- potentially to OR on Wednesday for washout of knee and removal of patellar wire. NPO @ MN +1/2 BC on admission. Follow up BC NGTD. Await c/s on both cx. May need RAMO. Dr. Loera to be consulted in AM. Continue home psychiatric medications. Monitor carefully on Tramadol. Continue daily laxatives- no BM recorded since admission. Will need to monitor closely. BG is fairly well controlled. Hold metformin today after evening dose pending OR tomorrow. Will need to hold meal-time insulin when NPO. Will give single dose of Lantus in AM. Continue serial lab monitoring.
[2017-10-17] MEDS: SIMVASTATIN 40 MG TABLET PO SCH (20:37)
[2017-10-17] MEDS: VANCOMYCIN 1,500 MG in NS 250ml 500 ML IV SCH (20:38)
[2017-10-18] MEDS: IBUPROFEN 600 MG TABLET PO PRN (02:50)
[2017-10-18] MEDS: NS FLUSH BAG 500ml IV PRN (05:10)
[2017-10-18] MEDS: VANCOMYCIN 1,500 MG in NS 250ml 500 ML IV SCH (05:10)
[2017-10-18] MEDS ORDERED: INSULIN GLARGINE 100unit/ml INJECTION SQ SCH (09:00)
[2017-10-18] MEDS ORDERED: NICOTINE PATCH REMOVAL TD PRN (09:21)
[2017-10-18] MEDS: QUETIAPINE 200 MG TABLET PO SCH ×3 (09:32→21:32)
[2017-10-18] MEDS: Bisacodyl EC TAB 5 MG TABLET PO SCH (09:33)
[2017-10-18] MEDS: DIVALPROEX 500 MG TABLET PO SCH ×2 (09:33→21:32)
[2017-10-18] MEDS: ZIPRASIDONE 40 MG CAPSULE PO SCH ×3 (09:33→21:31)
[2017-10-18] MEDS: ACETAMINOPHEN 325 MG TABLET PO SCH ×3 (09:33→21:32)
[2017-10-18] MEDS: CETIRIZINE 10 MG TABLET PO SCH (09:33)
[2017-10-18] MEDS: ASPIRIN *EC* 81 MG TABLET PO SCH (09:33)
[2017-10-18] MEDS: POLYETHYL GLYCOL 3350 17gm PACKET PO SCH (09:33)
[2017-10-18] MEDS: INSULIN ASPART 100unit/ml INJECTION SQ SCH ×3 (09:34→18:32)
[2017-10-18] MEDS: TRAMADOL 50 MG TABLET PO PRN (09:35)
--- NOTE | 2017-10-18 09:57 | Infectious Disease Consult ---
Infectious Disease Consult Date of Consultation: 10/18/17 Requesting Physician: Marianela Black Reason for Consultation: antibiotic recs History of Present Illness: Ms. Goldberg is a 57 y/o woman with a history of schizophrenia resides at [facility] in [place]. She is unable to give me a history. She answers some questions and what seems to be an appropriate fashion but many of her answers don't make sense. Per records she has had a left patella fracture that was surgically repaired. Timing of this is on clear. Records indicate she's had a 3 month history of left knee infection. His been evaluated in the emergency department and there are several wound cultures from the left knee that have grown MSSA. Indicate she has been treated with Levaquin for 10 days in July. October 12 she stopped bearing weight on her left leg and was noted to have purulent drainage from an open area. A culture was obtained and grew MSSA. Records also indicate that she has reportedly had more delusions over the past 2 weeks. She was admitted here on October 15 for evaluation of her knee. Both of her blood cultures obtained on October 15 are positive for MSSA. On October 16 her left knee was aspirated and there were 50 cc of turbid fluid removed. This grew MSSA. Started on vancomycin due to her penicillin allergy. I believe she is scheduled for surgery today for her knee. She is not had any documented fever. Medications Home Medications Medication Instructions Recorded Confirmed Type Acetaminophen 650 mg PO TID 10/15/17 10/15/17 History Acetaminophen [Acetaminophen Extra 1,000 mg PO Q8H PRN 10/15/17 10/15/17 History Strength] Artificial Tears [Tears Naturale] 2 drops EACH EYE BID PRN 10/15/17 10/15/17 History Aspirin [Low Dose Aspirin EC] 81 mg PO DAILY 10/15/17 10/15/17 History Bisacodyl EC TAB [Dulcolax] 10 mg PO DAILY 10/15/17 10/15/17 History Bisacodyl Supp [Dulcolax] 10 mg RECTALLY PRN PRN 10/15/17 10/15/17 History Cetirizine HCl [Zyrtec] 10 mg PO DAILY 10/15/17 10/15/17 History Divalproex Sodium [Depakote] 1,000 mg PO WB 10/15/17 10/15/17 History Divalproex Sodium [Depakote] 1,500 mg PO HS 10/15/17 10/15/17 History Guaifenesin Oral Liq [Robitussin 200 mg PO Q4H PRN 10/15/17 10/15/17 History Liq] Ibuprofen [Ibu] 600 mg PO BID 10/15/17 10/15/17 History Ibuprofen [Ibu] 600 mg PO Q8H PRN 10/15/17 10/15/17 History Insulin Aspart [Novolog Flexpen] 3 unit SQ WS 10/15/17 10/15/17 History Insulin Aspart [Novolog Flexpen] 5 unit SQ BIDBL 10/15/17 10/15/17 History Levofloxacin [Levaquin] 250 mg PO HS 10/15/17 10/15/17 History Mag Hydrox/Aluminum Hyd/Simeth 30 ml PO Q4H PRN 10/15/17 10/15/17 History [Alum-Mag Hydroxide-Simeth Liq] Magnesium Citrate [Citroma] 296 ml PO Q2D PRN 10/15/17 10/15/17 History Magnesium Hydroxide [Milk of 30 ml PO DAILY PRN 10/15/17 10/15/17 History Magnesia] Magnesium Hydroxide [Milk of 30 ml PO MOWEFR 10/15/17 10/15/17 History Magnesia] Metformin HCl [Glucophage] 1,000 mg PO BID 10/15/17 10/15/17 History Quetiapine Fumarate [Seroquel] 300 mg PO TID 10/15/17 10/15/17 History Simvastatin [Zocor] 40 mg PO HS 10/15/17 10/15/17 History Tramadol [Ultram] 50 mg PO Q4-6HPRN PRN 10/15/17 10/15/17 History Ziprasidone HCl [Geodon] 40 mg PO WL 10/15/17 10/15/17 History Ziprasidone HCl [Geodon] 80 mg PO BID 10/15/17 10/15/17 History Allergies Allergy/AdvReac Type Severity Reaction Status Date / Time haloperidol [From Haldol] Allergy Verified 10/15/17 16:48 lithium Allergy Verified 10/15/17 16:48 Penicillins Allergy Verified 10/15/17 16:48 Sulfa (Sulfonamide Allergy Verified 10/15/17 16:48 Antibiotics) tetracycline Allergy Verified 10/15/17 16:48 [facility] Patient Stated Medical History Other Cardiology Yes: hyperlipidemia Diabetes Mellitus Type 2 Yes Other GI Yes: constipation Other Musculoskeletal Yes: osteopenia,osteochondrosis(rt. foot) Other Infectious Yes: knee infection-current Schizophrenia Yes: schizo affective Other Reproductive Yes: states has 4 kids-vaginally Medical History Updates: Schizoaffective disorder. DM type 2. Constipation. Allergic rhinitis. HTN. Hyperlipidemia. Osteopenia. Vit D deficiency. Osteochondrosis right foot Surgical History: Left patellar ORIF Family History: unable to obtain - Social History Smoking status: Current every day smoker Packs per day: 1 Substance use type: does not use Alcohol intake frequency: does not drink Current occupational status: disabled Review of Systems ROS unobtainable: due to mental status (she doesn't answer questions appropriately) Exam Vital Signs: Temperature 99 F 10/18/17 07:00 Pulse Rate 86 10/18/17 07:00 Respiratory Rate 16 10/18/17 07:00 Blood Pressure 135/88 10/18/17 07:00 Pulse Oximetry 91 10/18/17 07:00 Height/Weight/BMI: Height 1.63 m Weight 96.7 kg Body Mass Index 37.0 - Constitutional Present: no acute distress, well nourished, well developed - Routine HEENT Exam Head: Present: normocephalic, atraumatic Eye: Present: EOMI, PERRL ENT: Present: mucous membranes moist, oropharynx clear - Routine Neck Exam Present: supple - Routine Respiratory Exam Present: CTA bilaterally - Routine Cardiovascular Exam Present: RRR - Routine Abdominal Exam Present: soft, normoactive bowel sounds, non distended, non tender - Routine Extremities Exam Absent: cyanosis, clubbing, edema - Detailed Lower Extremity Exam Knee: Left swelling, Left tenderness, Left erythema (mild), Left decreased ROM ( she won't let me bend her knee) - Routine Skin Exam Present: intact. Absent: rash - Routine Neurological Exam Present: alert, CN II-XII intact, altered mental status. Absent: motor deficit - Routine Psychiatric Exam Comments: difficult to assess. She doesn't answer questions appropriately, and starts talking about things that don't make sense. Results - Labs CBC & Chem 7: 10/18/17 04:18 10/18/17 04:18 Microbiology Results: Microbiology 10/16/17 09:17 Aspirate, Left Knee Gram Stain - Final 10/16/17 09:17 Aspirate, Left Knee Body Fluid Culture - Final Staphylococcus aureus 10/17/17 06:05 Peripheral/Iv Start Blood Culture - Preliminary No Growth After 1 Day 10/17/17 06:12 Peripheral/Iv Start Blood Culture - Preliminary No Growth After 1 Day Impression: Septicemia secondary to musculoskeletal source Septic arthritis R knee, with possible infected patellar hardware H/o R patellar fracture s/p repair DM II, not IR Schizoaffective disorder Vague, undefined allergies to PCN, sulfa, tetracycline Recommendation: Recommend cefazolin. Will monitor closely for side effects/allergic reaction. F/U on repeat blood cultures. Surgical debridement planned by Dr. Leahy. She will likely need 6 weeks of IV antibiotics. Discussed with Dr. Black.
[2017-10-18] MEDS: LR 1,000 ML IV SCH (11:54)
--- NOTE | 2017-10-18 12:04 | Anesthesia Preoperative Report ---
Anesthesia Preoperative Record - Date and Time Date: 10/18/17 Preoperative Diagnosis: sepsis,left lower extremity cellulitis Proposed Procedure: knee arthroscopy I/D NPO Since Date: 10/18/17 NPO Since Time: 05:00 Allergies/Adverse Reactions: Allergies Allergy/AdvReac Type Severity Reaction Status Date / Time haloperidol [From Haldol] Allergy Verified 10/15/17 16:48 lithium Allergy Verified 10/15/17 16:48 Penicillins Allergy Verified 10/15/17 16:48 Sulfa (Sulfonamide Allergy Verified 10/15/17 16:48 Antibiotics) tetracycline Allergy Verified 10/15/17 16:48 - Vital Signs Vital Signs: Temperature 98.3 F 10/18/17 11:48 Pulse Rate 91 10/18/17 11:48 Respiratory Rate 16 10/18/17 11:48 Blood Pressure 133/70 10/18/17 11:48 Pulse Oximetry 91 10/18/17 11:48 Height and Weight: Height 1.63 m Weight 96.7 kg Body Mass Index 37.0 - Medications Inpatient Medications: Current Medications Acetaminophen (Tylenol) 1,000 mg PO Q8H PRN PRN Reason: Pain Last Admin: 10/17/17 05:06 Dose: 1,000 mg Acetaminophen (Tylenol) 650 mg PO TID [facility] Last Admin: 10/18/17 09:33 Dose: 650 mg Al Hydrox/Mg Hydrox/Simethicone (Maalox Plus "Xs") 30 ml PO Q4H PRN Artificial Tears (Tears Naturale) 2 drops EACH EYE BID PRN PRN Reason: Dry eyes Aspirin (Ecotrin) 81 mg PO DAILY [facility] Last Admin: 10/18/17 09:33 Dose: 81 mg Bisacodyl (Dulcolax) 10 mg PO DAILY [facility] Last Admin: 10/18/17 09:33 Dose: 10 mg Bisacodyl (Dulcolax) 10 mg RECTALLY PRN PRN PRN Reason: Constipation Cetirizine HCl (Zyrtec) 10 mg PO DAILY [facility] Last Admin: 10/18/17 09:33 Dose: Not Given Divalproex Sodium (Depakote) 1,000 mg PO WB [facility] Last Admin: 10/18/17 09:33 Dose: 1,000 mg Divalproex Sodium (Depakote) 1,500 mg PO HS [facility] Last Admin: 10/17/17 20:36 Dose: 1,500 mg Enoxaparin Sodium (Lovenox) 40 mg SQ DAILY [facility] Last Admin: 10/17/17 09:15 Dose: 40 mg Guaifenesin (Robitussin Liq) 200 mg PO Q4H PRN PRN Reason: Cough Lactated Ringer's (Lactated Ringers) 1,000 mls @ 50 mls/hr IV .Q20H [facility] Last Admin: 10/18/17 11:54 Dose: 50 mls/hr Cefazolin Sodium 2 g/ Sodium (Chloride) 100 mls @ 200 mls/hr IV Q8HR [facility] Ibuprofen (Motrin) 600 mg PO Q8H PRN PRN Reason: Pain Last Admin: 10/18/17 02:50 Dose: 600 mg Insulin Aspart (Novolog) 3 unit SQ BIDBL [facility] Last Admin: 10/18/17 09:34 Dose: 3 unit Insulin Aspart (Novolog) 5 unit SQ WS [facility] Last Admin: 10/17/17 18:29 Dose: 5 unit Insulin Glargine (Lantus) 8 unit SQ DAILY [facility] Stop: 10/19/17 08:59 Last Admin: 10/18/17 09:34 Dose: 8 unit Magnesium Citrate (Citrate Of Magnesia) 296 ml PO Q2D PRN PRN Reason: Constipation Magnesium Hydroxide (Mom) 30 ml PO DAILY PRN PRN Reason: Constipation Magnesium Hydroxide (Mom) 30 ml PO MOWEFR [facility] Last Admin: 10/15/17 20:45 Dose: 30 ml Metformin HCl (Glucophage) 1,000 mg PO BIDWM [facility] Last Admin: 10/17/17 18:30 Dose: 1,000 mg Morphine Sulfate (Morphine Sulfate Inj) 1 - 2 mg IVP Q2H PRN PRN Reason: Pain Nicotine (Nicoderm) 21 mg TD DAILY PRN Nicotine (Nicotine Patch Removal) 1 removal TD DAILY PRN Ondansetron HCl (Zofran) 4 mg IVP Q6H PRN PRN Reason: Nausea &/or vomiting Polyethylene Glycol (Miralax) 17 gm PO DAILY [facility] Last Admin: 10/18/17 09:33 Dose: 17 gm Quetiapine Fumarate (Seroquel) 300 mg PO TID [facility] Last Admin: 10/18/17 09:32 Dose: 300 mg Simvastatin (Zocor) 40 mg PO HS [facility] Last Admin: 10/17/17 20:37 Dose: 40 mg Sodium Chloride (Iv Flush) 10 - 80 ml IVF PRN PRN PRN Reason: Flushing Last Admin: 10/15/17 16:25 Dose: 10 ml Sodium Chloride (Normal Saline) 500 ml IV PRN PRN Last Admin: 10/18/17 05:10 Dose: 500 ml Tramadol HCl (Ultram) 50 mg PO Q4-6HR PRN PRN Reason: Pain Last Admin: 10/18/17 09:35 Dose: 50 mg Ziprasidone (Geodon) 40 mg PO WL [facility] Last Admin: 10/17/17 13:21 Dose: 40 mg Ziprasidone (Geodon) 80 mg PO BID [facility] Last Admin: 10/18/17 09:33 Dose: 80 mg Home Medications: Home Medications Medication Instructions Recorded Confirmed Type Acetaminophen 650 mg PO TID 10/15/17 10/15/17 History Acetaminophen [Acetaminophen Extra 1,000 mg PO Q8H PRN 10/15/17 10/15/17 History Strength] Artificial Tears [Tears Naturale] 2 drops EACH EYE BID PRN 10/15/17 10/15/17 History Aspirin [Low Dose Aspirin EC] 81 mg PO DAILY 10/15/17 10/15/17 History Bisacodyl EC TAB [Dulcolax] 10 mg PO DAILY 10/15/17 10/15/17 History Bisacodyl Supp [Dulcolax] 10 mg RECTALLY PRN PRN 10/15/17 10/15/17 History Cetirizine HCl [Zyrtec] 10 mg PO DAILY 10/15/17 10/15/17 History Divalproex Sodium [Depakote] 1,000 mg PO WB 10/15/17 10/15/17 History Divalproex Sodium [Depakote] 1,500 mg PO HS 10/15/17 10/15/17 History Guaifenesin Oral Liq [Robitussin 200 mg PO Q4H PRN 10/15/17 10/15/17 History Liq] Ibuprofen [Ibu] 600 mg PO BID 10/15/17 10/15/17 History Ibuprofen [Ibu] 600 mg PO Q8H PRN 10/15/17 10/15/17 History Insulin Aspart [Novolog Flexpen] 3 unit SQ WS 10/15/17 10/15/17 History Insulin Aspart [Novolog Flexpen] 5 unit SQ BIDBL 10/15/17 10/15/17 History Levofloxacin [Levaquin] 250 mg PO HS 10/15/17 10/15/17 History Mag Hydrox/Aluminum Hyd/Simeth 30 ml PO Q4H PRN 10/15/17 10/15/17 History [Alum-Mag Hydroxide-Simeth Liq] Magnesium Citrate [Citroma] 296 ml PO Q2D PRN 10/15/17 10/15/17 History Magnesium Hydroxide [Milk of 30 ml PO DAILY PRN 10/15/17 10/15/17 History Magnesia] Magnesium Hydroxide [Milk of 30 ml PO MOWEFR 10/15/17 10/15/17 History Magnesia] Metformin HCl [Glucophage] 1,000 mg PO BID 10/15/17 10/15/17 History Quetiapine Fumarate [Seroquel] 300 mg PO TID 10/15/17 10/15/17 History Simvastatin [Zocor] 40 mg PO HS 10/15/17 10/15/17 History Tramadol [Ultram] 50 mg PO Q4-6HPRN PRN 10/15/17 10/15/17 History Ziprasidone HCl [Geodon] 40 mg PO WL 10/15/17 10/15/17 History Ziprasidone HCl [Geodon] 80 mg PO BID 10/15/17 10/15/17 History Is Patient on Beta Delfina?: No - Medical History Respiratory: Reports: Chronic Obstructive Pulmonary Disease (COPD) DENIES: Sleep Apnea Cardiovascular: Reports: Other (hyperlipidemia) Gastrointestional: Reports: Other (constipation) Neuro/Musculoskeletal: Reports: Other (osteopenia,osteochondrosis(rt. foot)) Renal/Endocrine: Reports: Diabetes Mellitus Type 2 Other History: Reports: Cancer (states breast cancer) - Surgical History Reproductive Surgery/Treatment: Reports: Other - Social History Smoking Status: Current every day smoker Packs per day: 1 Hx Chewing Tobacco Use: No Second Hand Exposure: No Substance Use Type: does not use Alcohol Intake Frequency: does not drink - Pertinent Findings Laboratory: CBC and BMP 10/18/17 04:18 10/18/17 04:18 BMP 10/18/17 04:18 Sodium 143 Potassium 4.5 Chloride 106 Carbon Dioxide 27 BUN 11.0 Creatinine 0.6 L Glucose 187 H Calcium 9.5 EKG: Sinus Tachycardia - Physical Exam Respiratory Exam: Present: lungs clear Cardiovascular Exam: Present: regular rate and rhythm, no murmur - Airway Assessment Mallampati Score: II TMD: 3 Fingerbreadths Neck Extension: good Teeth: upper dentures Overall Assessment: no airway concerns - ASA ASA Score: 3, E - Plan Anesthesia: General Inhalation Gases - Discussion Discussion: Discussed risks/options/alternatives of anesthesia and questions answered. Patient consents. Nursing pain assessment noted. Attestation Statement: Prior to the delivery of any anesthetic medication, I examined the patient, developed the plan, obtained the patient's consent and discussed the risk and benefits of the procedure with the patient/guardian. - Additional Information Seen by Anesthesia: Yes
[2017-10-18] MEDS ORDERED: ROCURONIUM 50 MG/5 ML INJECTION IVP ONE (12:13)
[2017-10-18] MEDS ORDERED: PROPOFOL 20 ML ONE ×2 (12:13→12:48)
[2017-10-18] MEDS ORDERED: FentaNYL 250 MCG/5 ML INJECTION ONE ×2 (12:15→13:20)
[2017-10-18] MEDS: CEFAZOLIN 2 G in NS 100 ML IV SCH ×2 (12:27→17:13)
[2017-10-18] MEDS ORDERED: BUPIVACAINE 0.5% (5mg/ml) PF 30ml INJ SDV ONE (12:31)
[2017-10-18] MEDS ORDERED: LIDOCAINE 1% (10mg/ml) 30ml SDV INJ ONE (12:31)
[2017-10-18] MEDS ORDERED: SUGAMMADEX 200mg/2ml INJECTION IVP ONE (13:13)
[2017-10-18] MEDS ORDERED: HYDROMORPHONE 2 MG/ML INJECTION IVP PRN (13:35)
[2017-10-18] MEDS ORDERED: LIDOCAINE 1% (10mg/ml) 30ml SDV INJ INFIL ONE (13:43)
--- NOTE | 2017-10-18 14:58 | Anesthesia Postoperative Note ---
- Date and Time Date: 10/18/17 Time: 14:57 - Status Patient Participated in Evaluation: Patient Participated in Person Vital Signs: Temperature 98.2 F 10/18/17 13:29 Pulse Rate 100 10/18/17 14:45 Respiratory Rate 21 10/18/17 14:45 Blood Pressure 138/74 10/18/17 14:45 Pulse Oximetry 94 10/18/17 14:45 Respiratory Function: Airway Patent Cardiovascular Function: Regular Pulse EKG: Sinus Rhythm Mental Status: Alert and Oriented Pain Intensity: 0 Hydration: Taking PO Fluids Complications During Recover: None Apparent - Follow-Up Instructions Instructions: Per Surgeon
--- NOTE | 2017-10-18 15:10 | Operative Note ---
DATE OF PROCEDURE 10/18/2017 PREOPERATIVE DIAGNOSIS Left knee septic arthritis with anterior knee wound and retained patellar hardware. POSTOPERATIVE DIAGNOSIS Left knee septic arthritis with anterior knee wound and retained patellar hardware. PROCEDURE Arthroscopic irrigation and debridement, left knee, with open deep hardware removal and bone biopsy of patella. SURGEON Janusz Leahy MD HISTOPATH TECH Kathrine Duncan APRN COMPLICATIONS None. EBL & FLUIDS AND TOURNIQUET TIME Please see Anesthetic Records. DESCRIPTION OF PROCEDURE Mrs. Goldberg and her left knee were identified and marked in the preoperative holding area. She was brought back to the operating suite and placed supine on the operating table. She was placed under general anesthesia. The left leg was placed in a leg hardwick with a tourniquet. The right leg was placed in a well leg hardwick. The end of the bed was dropped. The left lower extremity was prepped and draped in my normal sterile fashion. Time-out was performed. The patient is on antibiotics already. I started by establishing an anteromedial and anterolateral port site. Once inside the knee, she had significant arthritic changes, especially in the medial compartment, with grade 3 chondral lesions to the medial aspect of the medial femoral condyle. She also had a large tear to the anterior horn of the medial meniscus. Partial medial meniscectomy and chondroplasty were performed. Posterior horn of the meniscus looked like it was in good condition and her tibial articular cartilage was relatively well preserved. Her ACL was probed. It did feel to be loose but not an obvious tear. Lateral compartment was entered. There were minor arthritic changes in this compartment with some, again, fraying of the anterior horn of the meniscus. Again, a partial medial meniscectomy was performed. I entered the patellofemoral joint and she had significant arthritic changes in the undersurface of the patella including grade 2 and 3 lesions. She also had global synovitis throughout the suprapatellar pouch. I proceeded with a partial synovectomy using a shaver to remove as much of the synovitis as possible as well as some loose frayed articular cartilage both in the trochlea and under the patella. There were no significant step-offs of the patella that were noted or any large new fractures noted. After a total of 3 liters of irrigation was used throughout the knee, the instruments were removed. I then brought up the end of the bed. She had a small eschar over the anterior knee which was removed sharply, under which there was a sinus tract that tracked down to the hardware over the anterolateral patella. I opened up this tract, making a longitudinal incision approximately 2 cm in length including this tract and this tissue was removed. There was obvious hardware from the previous patellar fracture. This is where the wire was twisted. I was able to remove it from the bone by pulling it out. It was known from previous x-rays that the hardware was already broken. There was no more hardware within this wound that could be palpated. There was some loose bone, though, that came out as the hardware was removed. This was sent for pathology. It was felt by me at this time that there was likely osteo in the bone given the sinus tract which was likely there for quite a while and the obviously loose piece of bone that came out when we removed the hardware. This wound was then thoroughly irrigated and then all three incisions were closed with simple interrupted nylon suture. Sterile dressings were then placed. The drapes were removed. The tourniquet was let down. She was allowed to awaken from general anesthesia and taken to the Recovery Room under the care of Anesthesia. She tolerated the procedure well and there were no complications. SAUL
[2017-10-18] MEDS ORDERED: FALL RISK - PHARMACY CONSULT MC ONE (17:15)
--- NOTE | 2017-10-18 18:02 | Progress Note ---
- Date 10/18/17 Subjective: Patient was seen following arthroscopic I&D left knee with removal of hardware from the patella. She remains sedated at the time of my assessment and did not awaken to examination. Nursing reports that immediately after return from the OR the patient was agitated and was pulling at her lines and refused any care offered. There was apparently difficulty in postop with patient permitting supplemental oxygen to be utilized. She was afebrile overnight and has had good urine output and normal bowel function. Objective Vital signs: Temperature 98.0 F 10/18/17 16:48 Pulse Rate 96 10/18/17 16:48 Respiratory Rate 14 10/18/17 16:48 Blood Pressure 141/80 H 10/18/17 16:48 Pulse Oximetry 91 - RA 10/18/17 16:48 NAD, resting/sleeping soundly time of my assessment Anterior breath sounds clear, mild Caesar-Dhaliwal respiratory pattern with oxygen saturation occasionally dropping briefly to 89% on room air during apneic phases, rebounds quickly with one-to breaths. Regular rhythm, S1-S2 Abdomen soft Moderate edema left lower extremity, knee wrapped Height/Weight/BMI: Height 1.63 m Weight 96.7 kg Body Mass Index 37.0 Results - Labs CBC & Chem 7: 10/18/17 04:18 10/18/17 04:18 Labs: S81 L19 Accu-Cheks 121-190 today Vitamin B-12 270 Microbiology Results: Microbiology 10/18/17 13:05 Knee, Lt Intraop Site Gram Stain - Final 10/18/17 13:05 Knee, Lt Intraop Site Surgical Culture - Preliminary Culture Initiated - Results Pending 10/16/17 09:17 Aspirate, Left Knee Gram Stain - Final 10/16/17 09:17 Aspirate, Left Knee Body Fluid Culture - Final Staphylococcus aureus-MSSA 10/17/17 06:05 Peripheral/Iv Start Blood Culture - Preliminary No Growth After 1 Day 10/17/17 06:12 Peripheral/Iv Start Blood Culture - Preliminary No Growth After 1 Day Blood cultures 2 drawn 10/15/17 positive MSSA Assessment and Plan (1) Septic shock Current visit: Yes Status: Acute Assessment and Plan: Assessment Septic shock - lactate >5; SIRS = bandemia, tachycardia SHOSHANA bacteremia Septic joint, left knee, SHOSHANA Schizoaffective disorder DM type 2 Constipation Allergic rhinitis HTN Hyperlipidemia Osteopenia Vit D deficiency Osteochondrosis right foot Plan: Discussed with Dr. Loera earlier today-blood culture on presentation oxacillin/ methicillin sensitive. Vancomycin discontinued and cefazolin initiated at 2 g every 8 hours. 6 weeks of antibiotics anticipated. Subsequently staph aureus in knee aspirate has been identified as oxacillin sensitive as well. Hardware removed from her left knee this afternoon in conjunction with I&D and biopsy of the patella. Repeat blood cultures drawn yesterday negative thus far. Blood pressure borderline high consistently, initiate lisinopril. Blood sugars stable, may require glucose infusion if remains sedated and does not eat this evening. Continue usual psychiatric regimen. DVT Prophylaxis: Lovenox Resuscitation Status: Full Code - Physician Narrative Physician: Marianela Black MD Narrative: Date: 10/18/17 Time: 8 Hospital Course Summary Disclaimer: The visit summary below is not to be considered part of the above Progress Note. Hospital Course: 10/15/17 Admit, inpatient status under the hospitalist service. PCP: Dr. Carranza. Septic shock secondary to septic left knee -30 ml/kg fluid bolus ordered -recheck lactate to ensure downward trend -start vanco/cefepime for coverage -follow results of culture from 10/13/17 -consults placed for Dr. Loera & Dr. Leahy on 10/18/17 -recheck crp and procalcitonin on 10/17/17 -will likely need pt/ot eval prior to discharge DM2 -monitor sugars -resume meds schizoaffective d/o -home meds resumed 10/16/17 Hemodynamically stable overnight, recent wound culture and blood culture on admission positive for staph aureus. Knee aspirated with gram-positive cocci. Dr. Loera to see on Wednesday, or throat consultation initiated today. May require RAMO. Continue vancomycin-attempting to obtain further information regarding nature of patient's penicillin allergy. Guardian has no information. Discontinue cefepime. 10/17/17 Patient is alert and feeling fairly well today. Continue Vancomycin. Ortho notes reviewed- potentially to OR on Wednesday for washout of knee and removal of patellar wire. NPO @ MN +1/2 BC on admission. Follow up BC NGTD. Await c/s on both cx. May need RAMO. Dr. Loera to be consulted in AM. Continue home psychiatric medications. Monitor carefully on Tramadol. Continue daily laxatives- no BM recorded since admission. Will need to monitor closely. BG is fairly well controlled. Hold metformin today after evening dose pending OR tomorrow. 10/18/[address] Loera earlier today-blood culture on presentation oxacillin/ methicillin sensitive. Vancomycin discontinued and cefazolin initiated at 2 g every 8 hours. 6 weeks of antibiotics anticipated. Subsequently staph aureus in knee aspirate has been identified as oxacillin sensitive as well. Hardware removed from her left knee this afternoon in conjunction with I&D and biopsy of the patella. Repeat blood cultures drawn yesterday negative thus far. Blood pressure borderline high consistently, initiate lisinopril. Blood sugars stable, may require glucose infusion if remains sedated and does not eat this evening.
[2017-10-18] MEDS: SIMVASTATIN 40 MG TABLET PO SCH (21:32)
[2017-10-19] MEDS: SALINE FLUSH 10ml SYRINGE IVF PRN ×4 (01:13→21:08)
[2017-10-19] MEDS: CEFAZOLIN 2 G in NS 100 ML IV SCH ×3 (01:16→17:59)
[2017-10-19] MEDS: IBUPROFEN 600 MG TABLET PO PRN (05:31)
[2017-10-19] MEDS: INSULIN ASPART 100unit/ml INJECTION SQ SCH ×3 (08:27→18:01)
[2017-10-19] MEDS: ENOXAPARIN 40 MG/0.4 ML INJECTION SQ SCH (08:27)
[2017-10-19] MEDS: ACETAMINOPHEN 325 MG TABLET PO SCH ×3 (08:29→21:05)
[2017-10-19] MEDS: Bisacodyl EC TAB 5 MG TABLET PO SCH (08:30)
[2017-10-19] MEDS: ASPIRIN *EC* 81 MG TABLET PO SCH (08:30)
[2017-10-19] MEDS: LISINOPRIL 5 MG TABLET PO SCH (08:31)
[2017-10-19] MEDS: CETIRIZINE 10 MG TABLET PO SCH (08:31)
[2017-10-19] MEDS: QUETIAPINE 200 MG TABLET PO SCH ×3 (08:32→21:06)
[2017-10-19] MEDS: DIVALPROEX 500 MG TABLET PO SCH ×2 (08:34→21:07)
[2017-10-19] MEDS: POLYETHYL GLYCOL 3350 17gm PACKET PO SCH (08:37)
[2017-10-19] MEDS: CYANOCOBALAMIN (B-12) 1,000mcg/ml INJECTION IM SCH (08:38)
[2017-10-19] MEDS: ZIPRASIDONE 40 MG CAPSULE PO SCH ×3 (08:45→21:08)
--- NOTE | 2017-10-19 10:23 | Orthopedic Progress Note ---
Date: Date: 10/19/17 Time: 1018 Subjective/Severity of Illness: Maria Fernanda is lying in bed this morning on rounds. She is post op day 1 of I&D of left knee with patella hardware removal by Dr. Leahy. Patella bone biopsy from intra op positive for staph aureus. She reports pain has improved since I&D but continues to have difficult with active ROM due to pain. Denies CP, SOA, nausea. Orthopedic Exam Vital signs: Temperature 96.8 F 10/19/17 07:00 Pulse Rate 93 10/19/17 07:00 Respiratory Rate 10/19/17 07:00 Blood Pressure 141/80 H 10/19/17 07:00 Pulse Oximetry 90 10/19/17 08:02 - Constitutional General Appearance: Present: alert, orientated x2, no acute distress - Respiratory Exam Present: non-labored - Cardiovascular Exam Present: pedal pulses intact - Extremities Exam Present: edema (left foot), pulses intact. Absent: cyanosis, clubbing, calf tenderness - Dressing Dressing: bloody drainage (minimal bloody drainage on gauze. New xeroform, guaze , kerlex applied. Rewrapped left lower leg with DURGA wrap) - Detailed Lower Extremity Exam Knee: Left swelling, Left tenderness, Left erythema (mild), Left decreased ROM ( she won't let me bend her knee) - Integumentary Exam Present: pink, warm, dry - Neurological Exam Present: intact to light touch, no deficits - Psychiatric Exam Present: alert - Labs Result Diagrams: 10/19/17 04:00 10/19/17 04:00 Abnormal lab results 10/19/17 10/19/17 Range/Units 04:00 04:00 RBC 3.55 L (4.00-5.20) M/MM3 Hgb 11.6 L (12-16) GM/DL Hct 35.4 L (36-46) % MPV 9.2 L (9.4-12.4) UM3 Band Neutrophils % 12.0 H D (0-6) % Reactive Lymphs % 3.0 H (0-0) % Monocytes % (Manual) 12.0 H (0-9.0) % Abs React Lymphs (Man) 0.2 H (0-0) T/MM3 Monocytes # (Manual) 1.0 H (0-0.8) T/MM3 Glucose 147 H (65-110) MG/DL H & H 10/16/17 10/17/17 10/18/17 Range/Units 04:44 06:05 04:18 Hgb 12.0 11.4 L 11.1 L (12-16) GM/DL Hct 37.6 34.9 L 34.1 L (36-46) % 10/19/17 Range/Units 04:00 Hgb 11.6 L (12-16) GM/DL Hct 35.4 L (36-46) % Orthopedic Assessment and Plan (1) Infection of left knee Status: Acute Assessment and Plan: Left knee aspiration and Bone biopsy intra op gram stain staph aureus- on Cefazolin q8hr per Dr. Loera Elevate left leg to improve edema. WBAT- PT/OT Medical management per hospitalist. Thank you for consultation. Hospital Course Summary Disclaimer: The visit summary below is not to be considered part of the above Progress Note. Hospital Course: 10/15/17 Admit, inpatient status under the hospitalist service. PCP: Dr. Carranza. Septic shock secondary to septic left knee -30 ml/kg fluid bolus ordered -recheck lactate to ensure downward trend -start vanco/cefepime for coverage -follow results of culture from 10/13/17 -consults placed for Dr. Loera & Dr. Leahy on 10/18/17 -recheck crp and procalcitonin on 10/17/17 -will likely need pt/ot eval prior to discharge DM2 -monitor sugars -resume meds schizoaffective d/o -home meds resumed 10/16/17 Hemodynamically stable overnight, recent wound culture and blood culture on admission positive for staph aureus. Knee aspirated with gram-positive cocci. Dr. Loera to see on Wednesday, or throat consultation initiated today. May require RAMO. Continue vancomycin-attempting to obtain further information regarding nature of patient's penicillin allergy. Guardian has no information. Discontinue cefepime. 10/17/17 Patient is alert and feeling fairly well today. Continue Vancomycin. Ortho notes reviewed- potentially to OR on Wednesday for washout of knee and removal of patellar wire. NPO @ MN +1/2 BC on admission. Follow up BC NGTD. Await c/s on both cx. May need RAMO. Dr. Loera to be consulted in AM. Continue home psychiatric medications. Monitor carefully on Tramadol. Continue daily laxatives- no BM recorded since admission. Will need to monitor closely. BG is fairly well controlled. Hold metformin today after evening dose pending OR tomorrow. 10/18/[address] Loera earlier today-blood culture on presentation oxacillin/ methicillin sensitive. Vancomycin discontinued and cefazolin initiated at 2 g every 8 hours. 6 weeks of antibiotics anticipated. Subsequently staph aureus in knee aspirate has been identified as oxacillin sensitive as well. Hardware removed from her left knee this afternoon in conjunction with I&D and biopsy of the patella. Repeat blood cultures drawn yesterday negative thus far. Blood pressure borderline high consistently, initiate lisinopril. Blood sugars stable, may require glucose infusion if remains sedated and does not eat this evening.
[2017-10-19] MEDS: LR 1,000 ML IV SCH (10:42)
[2017-10-19] MEDS: INSULIN ASPART 100unit/ml INJECTION SQ PRN ×3 (11:34→21:09)
--- NOTE | 2017-10-19 11:49 | Progress Note ---
- Date 10/19/17 Subjective: F/U: Sepsis, SHOSHANA knee infection Doing well this morning. Not having significant post op pain in knee. No f/c. Breathing well. Eating well. Not reporting nausea or ab pain. Bowels stable. Understands continued need for IV antibiotics. Objective Vital signs: Temperature 96.2 F L 10/19/17 11:35 Pulse Rate 91 10/19/17 11:35 Respiratory Rate 18 10/19/17 11:35 Blood Pressure 163/89 H 10/19/17 11:35 Pulse Oximetry 91 10/19/17 11:35 Height/Weight/BMI: Height 1.63 m Weight 76 kg Body Mass Index 37.0 - Constitutional Present: well nourished, well developed, average body habitus, cooperative - Routine HEENT Exam Head: Present: normocephalic, atraumatic Eye: Present: EOMI, PERRL, normal accommodation ENT: Present: mucous membranes moist - Routine Respiratory Exam Present: CTA bilaterally. Absent: respiratory distress, wheezes, crackles - Routine Cardiovascular Exam Present: RRR, no murmur - Routine Abdominal Exam Present: soft, normoactive bowel sounds, non distended, non tender. Absent: guarding - Routine Extremities Exam Present: edema (+1 LLE edema ). Absent: cyanosis, clubbing Comments: SCD present bilaterally - Routine Musculoskeletal Exam Musculoskeletal: Absent: no clubbing or cyanosis - Routine Skin Exam Present: dry, warm, wounds (Left knee wound covered in DURGA wrap. No drainage) - Routine Neurological Exam Present: alert, CN II-XII intact, moving all extremities, vision grossly intact , hearing grossly intact, normal speech. Absent: motor deficit, altered mental status - Routine Psychiatric Exam Present: normal affect, cooperative. Absent: agitated Results - Labs CBC & Chem 7: 10/19/17 04:00 10/19/17 04:00 Microbiology Results: Microbiology 10/18/17 13:05 Knee, Lt Intraop Site Gram Stain - Final 10/18/17 13:05 Knee, Lt Intraop Site Surgical Culture - Preliminary Staphylococcus aureus 10/17/17 06:12 Peripheral/Iv Start Blood Culture - Preliminary No Growth After 2 Days 10/17/17 06:05 Peripheral/Iv Start Blood Culture - Preliminary No Growth After 2 Days 10/16/17 09:17 Aspirate, Left Knee Gram Stain - Final 10/16/17 09:17 Aspirate, Left Knee Body Fluid Culture - Final Staphylococcus aureus Assessment and Plan (1) Septic shock Current visit: Yes Status: Acute Assessment and Plan: Assessment Septic shock - lactate >5; SIRS = bandemia, tachycardia SHOSHANA bacteremia Septic joint, left knee, SHOSHANA Schizoaffective disorder DM type 2 Constipation Allergic rhinitis HTN Hyperlipidemia Osteopenia Vit D deficiency Low normal vitamin B12 level Osteochondrosis right foot Tobacco dependency Plan Continue with cefazolin 2 grams IV q 8 hours - anticipate 6 week course of antibiotics. Will place PICC line due to intermodal customer service need for IV antibiotics. Ortho recommends weight bearing as tolerated. Will consult PT/OT to help functional status. Restart metformin 500mg BID with meals. Monitor sugars. Recheck BMP in am secondary to medications use. Will recheck CBC in am due to revolving sepsis. DVT Prophylaxis: SCD's, Lovenox Resuscitation Status: Full Code - Time spent with patient Time with patient PN: 25 minutes - Physician Narrative Physician: Fernando Mcdaniel MD Narrative: Date: 10/19/17 Time: 1146 Hospital Course Summary Disclaimer: The visit summary below is not to be considered part of the above Progress Note. Hospital Course: 10/15/17 Admit, inpatient status under the hospitalist service. PCP: Dr. Carranza. Septic shock secondary to septic left knee -30 ml/kg fluid bolus ordered -recheck lactate to ensure downward trend -start vanco/cefepime for coverage -follow results of culture from 10/13/17 -consults placed for Dr. Loera & Dr. Leahy on 10/18/17 -recheck crp and procalcitonin on 10/17/17 -will likely need pt/ot eval prior to discharge DM2 -monitor sugars -resume meds Schizoaffective d/o -home meds resumed 10/16/17 Hemodynamically stable overnight, recent wound culture and blood culture on admission positive for staph aureus. Knee aspirated with gram-positive cocci. Dr. Loera to see on Wednesday, or throat consultation initiated today. May require RAMO. Continue vancomycin-attempting to obtain further information regarding nature of patient's penicillin allergy. Guardian has no information. Discontinue cefepime. 10/17/17 Patient is alert and feeling fairly well today. Continue Vancomycin. Ortho notes reviewed- potentially to OR on Wednesday for washout of knee and removal of patellar wire. NPO @ [place] +1/2 BC on admission. Follow up BC NGTD. Await c/s on both cx. May need RAMO. Dr. Loera to be consulted in AM. Continue home psychiatric medications. Monitor carefully on Tramadol. Continue daily laxatives- no BM recorded since admission. Will need to monitor closely. BG is fairly well controlled. Hold metformin today after evening dose pending OR tomorrow. 10/18/17 OP DAY: Arthroscopic irrigation and debridement, left knee, with open deep hardware removal and bone biopsy of patella. Discussed with Dr. Loera earlier today-blood culture on presentation oxacillin/ methicillin sensitive. Vancomycin discontinued and cefazolin initiated at 2 g every 8 hours. 6 weeks of antibiotics anticipated. Subsequently staph aureus in knee aspirate has been identified as oxacillin sensitive as well. Hardware removed from her left knee this afternoon in conjunction with I&D and biopsy of the patella. Repeat blood cultures drawn yesterday negative thus far. Blood pressure borderline high consistently, initiate lisinopril 5mg daily. Blood sugars stable, may require glucose infusion if remains sedated and does not eat this evening. B-12 low; methylmalonic acid to be obtained in the morning after which daily B- 12 injections will be initiated 1 week. Dosing thereafter can be converted to oral if patient maintaining good oral intake and methylmalonic acid is normal. If MMA is abnormal I would favor continuation of B-12 injections. 10/19/17 Continue with cefazolin 2 grams IV q 8 hours - anticipate 6 week course of antibiotics. Will place PICC line due to custodial need for IV antibiotics. Ortho recommends weight bearing as tolerated. Will consult PT/OT to help functional status. Restart metformin 500mg BID with meals. Monitor sugars.
[2017-10-19] MEDS: METFORMIN 500 MG TABLET PO SCH (18:01)
[2017-10-19] MEDS: SIMVASTATIN 40 MG TABLET PO SCH (21:06)
[2017-10-20] MEDS: CEFAZOLIN 2 G in NS 100 ML IV SCH ×3 (01:04→17:40)
[2017-10-20] MEDS: NS FLUSH BAG 500ml IV PRN (01:04)
[2017-10-20] MEDS: SALINE FLUSH 10ml SYRINGE IVF PRN ×2 (01:04→05:32)
[2017-10-20] MEDS: INSULIN ASPART 100unit/ml INJECTION SQ PRN ×4 (06:29→20:58)
[2017-10-20] MEDS: DIVALPROEX 500 MG TABLET PO SCH ×2 (07:47→20:57)
[2017-10-20] MEDS: INSULIN ASPART 100unit/ml INJECTION SQ SCH ×3 (07:48→17:40)
[2017-10-20] MEDS: METFORMIN 500 MG TABLET PO SCH (07:49)
--- NOTE | 2017-10-20 08:45 | ID Progress Note ---
Subjective Date: 10/20/17 Subjective: She is feeling better today and tells me that I "did a wonderful job." She thinks Dr. Leahy did a wonderful job too. She denies N/V or diarrhea. Tolerating the Ancef. Exam Vital Signs: Temperature 96.9 F 10/20/17 07:19 Pulse Rate 89 10/20/17 07:19 Respiratory Rate 18 10/20/17 07:19 Blood Pressure 145/78 H 10/20/17 07:19 Pulse Oximetry 92 10/20/17 08:42 Height/Weight/BMI: Height 1.63 m Weight 94.6 kg Body Mass Index 37.0 - Constitutional Present: no acute distress, well nourished, well developed - Routine HEENT Exam Head: Present: normocephalic, atraumatic Eye: Present: EOMI, PERRL ENT: Present: mucous membranes moist, oropharynx clear - Routine Neck Exam Present: supple - Routine Respiratory Exam Present: CTA bilaterally - Routine Cardiovascular Exam Present: RRR - Routine Abdominal Exam Present: soft, normoactive bowel sounds, non distended, non tender - Routine Extremities Exam Absent: cyanosis, clubbing, edema - Routine Skin Exam Absent: rash Comments: L knee wrapped - Routine Neurological Exam Present: alert, CN II-XII intact - Routine Psychiatric Exam Present: normal affect Results - Labs CBC & Chem 7: 10/20/17 04:44 10/20/17 04:44 Microbiology Results: Microbiology 10/18/17 13:05 Knee, Lt Intraop Site Gram Stain - Final 10/18/17 13:05 Knee, Lt Intraop Site Surgical Culture - Final Staphylococcus aureus 10/17/17 06:12 Peripheral/Iv Start Blood Culture - Preliminary No Growth After 3 Days 10/17/17 06:05 Peripheral/Iv Start Blood Culture - Preliminary No Growth After 3 Days 10/16/17 09:17 Aspirate, Left Knee Gram Stain - Final 10/16/17 09:17 Aspirate, Left Knee Body Fluid Culture - Final Staphylococcus aureus (MSSA) 10/15/17 Blood cultures 2/2 with MSSA Impression: Septicemia secondary to musculoskeletal source Septicemia with MSSA Septic arthritis R knee, with infected patellar hardware, s/p I&D with hardware removal R patella and bone biopsy 10/18/17. Biopsy showed acute osteomyelitis. H/o R patellar fracture s/p repair DM II, not IR Schizoaffective disorder Vague, undefined allergies to PCN, sulfa, tetracycline Recommendation: Continue Ancef 2gm IV q8 hours. She will need 6 weeks of IV antibiotics from the date of surgery, so through 11/29/17. Recommend weekly CBC with diff, BMP, CRP. Doubt a RAMO will private branch exchange repairer, but it would be indicated if her blood cultures don't clear.
--- NOTE | 2017-10-20 09:00 | Orthopedic Progress Note ---
Date: Date: 10/20/17 Time: 856 Subjective/Severity of Illness: Maria Fernanda is seen in her room this AM. She denies much pain but beyond that it is difficult to get much information. She rambles about many topics unrelated to her knee. Appears comfortable. POD #1 from arthroscopic I&D and removal of hardware from left patella and bone biopsy. Orthopedic Exam Vital signs: Temperature 96.8 F 10/19/17 07:00 Pulse Rate 93 10/19/17 07:00 Respiratory Rate 18 10/19/17 07:00 Blood Pressure 141/80 H 10/19/17 07:00 Pulse Oximetry 90 10/19/17 08:02 - Constitutional General Appearance: Present: alert, cooperative, no acute distress - Respiratory Exam Present: non-labored - Cardiovascular Exam Present: pedal pulses intact - Extremities Exam Present: pulses intact - Dressing Dressing: bloody drainage (Small amount on the gauze. Wound looks good.) - Integumentary Exam Present: pink, warm, dry - Neurological Exam Present: intact to light touch, no deficits - Psychiatric Exam Present: alert - Labs Result Diagrams: 10/20/17 04:44 10/20/17 04:44 Abnormal lab results 10/20/17 10/20/17 Range/Units 04:44 04:44 RBC 3.44 L (4.00-5.20) M/MM3 Hgb 11.0 L (12-16) GM/DL Hct 33.9 L (36-46) % Band Neutrophils % 7.0 H (0-6) % Lymphocytes % (Manual) 15.0 L (23-45) % Monocytes % (Manual) 12.0 H (0-9.0) % Monocytes # (Manual) 1.1 H (0-0.8) T/MM3 Creatinine 0.6 L (0.7-1.2) mg/dL Glucose 175 H (65-110) MG/DL Calculated Osmolality 281 H (261-280) MOSM/KG H & H 10/16/17 10/17/17 10/18/17 Range/Units 04:44 06:05 04:18 Hgb 12.0 11.4 L 11.1 L (12-16) GM/DL Hct 37.6 34.9 L 34.1 L (36-46) % 10/19/17 10/20/17 Range/Units 04:00 04:44 Hgb 11.6 L 11.0 L (12-16) GM/DL Hct 35.4 L 33.9 L (36-46) % Orthopedic Assessment and Plan (1) Infection of left knee Status: Acute Assessment and Plan: Left knee aspiration and Bone biopsy intra op gram stain staph aureus- on Cefazolin q8hr per Dr. Loera Elevate left leg to improve edema. WBAT- PT/OT Medical management per hospitalist. Thank you for consultation. Hospital Course Summary Disclaimer: The visit summary below is not to be considered part of the above Progress Note. Hospital Course: 10/15/17 Admit, inpatient status under the hospitalist service. PCP: Dr. Carranza. Septic shock secondary to septic left knee -30 ml/kg fluid bolus ordered -recheck lactate to ensure downward trend -start vanco/cefepime for coverage -follow results of culture from 10/13/17 -consults placed for Dr. Loera & Dr. Leahy on 10/18/17 -recheck crp and procalcitonin on 10/17/17 -will likely need pt/ot eval prior to discharge DM2 -monitor sugars -resume meds Schizoaffective d/o -home meds resumed 10/16/17 Hemodynamically stable overnight, recent wound culture and blood culture on admission positive for staph aureus. Knee aspirated with gram-positive cocci. Dr. Loera to see on Wednesday, or throat consultation initiated today. May require RAMO. Continue vancomycin-attempting to obtain further information regarding nature of patient's penicillin allergy. Guardian has no information. Discontinue cefepime. 10/17/17 Patient is alert and feeling fairly well today. Continue Vancomycin. Ortho notes reviewed- potentially to OR on Wednesday for washout of knee and removal of patellar wire. NPO @ [place] +1/2 BC on admission. Follow up BC NGTD. Await c/s on both cx. May need RAMO. Dr. Loera to be consulted in AM. Continue home psychiatric medications. Monitor carefully on Tramadol. Continue daily laxatives- no BM recorded since admission. Will need to monitor closely. BG is fairly well controlled. Hold metformin today after evening dose pending OR tomorrow. 10/18/17 OP DAY: Arthroscopic irrigation and debridement, left knee, with open deep hardware removal and bone biopsy of patella. Discussed with Dr. Loera earlier today-blood culture on presentation oxacillin/ methicillin sensitive. Vancomycin discontinued and cefazolin initiated at 2 g every 8 hours. 6 weeks of antibiotics anticipated. Subsequently staph aureus in knee aspirate has been identified as oxacillin sensitive as well. Hardware removed from her left knee this afternoon in conjunction with I&D and biopsy of the patella. Repeat blood cultures drawn yesterday negative thus far. Blood pressure borderline high consistently, initiate lisinopril 5mg daily. Blood sugars stable, may require glucose infusion if remains sedated and does not eat this evening. B-12 low; methylmalonic acid to be obtained in the morning after which daily B- 12 injections will be initiated 1 week. Dosing thereafter can be converted to oral if patient maintaining good oral intake and methylmalonic acid is normal. If MMA is abnormal I would favor continuation of B-12 injections. 10/19/17 Continue with cefazolin 2 grams IV q 8 hours - anticipate 6 week course of antibiotics. 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 Ortho recommends weight bearing as tolerated. Will consult PT/OT to help functional status. Restart metformin 500mg BID with meals. Monitor sugars.
[2017-10-20] MEDS: ACETAMINOPHEN 325 MG TABLET PO SCH ×3 (09:08→20:57)
[2017-10-20] MEDS: Bisacodyl EC TAB 5 MG TABLET PO SCH (09:09)
[2017-10-20] MEDS: ASPIRIN *EC* 81 MG TABLET PO SCH (09:09)
[2017-10-20] MEDS: CETIRIZINE 10 MG TABLET PO SCH (09:09)
[2017-10-20] MEDS: ENOXAPARIN 40 MG/0.4 ML INJECTION SQ SCH (09:10)
[2017-10-20] MEDS: CYANOCOBALAMIN (B-12) 1,000mcg/ml INJECTION IM SCH (09:10)
[2017-10-20] MEDS: LISINOPRIL 5 MG TABLET PO SCH (09:11)
[2017-10-20] MEDS: QUETIAPINE 200 MG TABLET PO SCH ×3 (09:11→20:57)
[2017-10-20] MEDS: POLYETHYL GLYCOL 3350 17gm PACKET PO SCH ×2 (09:11→10:28)
[2017-10-20] MEDS: ZIPRASIDONE 40 MG CAPSULE PO SCH ×3 (09:13→20:56)
--- NOTE | 2017-10-20 14:03 | Progress Note ---
- Date 10/20/17 Subjective: Patient is seen resting in bed. She states her pain is "average." She dozes off when answering questions. She does not know the date or where we are. She denies CP, SOA, n/v, fever or chills. Nurse has no current concerns. Her sats drop below 90 w/ trials off of O2. Hasn't been overly cooperative with PT. Pt reports she attempted to sit up on edge of bed. Nurse reports pt seems to resist sitting up when encouraged. Objective Vital signs: Temperature 96.3 F L 10/20/17 12:00 Pulse Rate 91 10/20/17 12:00 Respiratory Rate 16 10/20/17 12:00 Blood Pressure 124/73 10/20/17 12:00 Pulse Oximetry 98 10/20/17 12:00 Height/Weight/BMI: Height 1.63 m Weight 94.6 kg Body Mass Index 37.0 - Constitutional Present: no acute distress, well nourished, well developed - Routine HEENT Exam Head: Present: normocephalic, atraumatic - Routine Respiratory Exam Present: CTA bilaterally (auscultated anteriorly). Absent: wheezes - Routine Cardiovascular Exam Present: RRR, no murmur - Routine Abdominal Exam Present: soft, non distended, non tender - Routine Extremities Exam Present: edema (1+ pitting L foot), no edema (RLE), normal capillary refill - Routine Skin Exam Present: dry, warm - Routine Neurological Exam Absent: alert, oriented X3 - Routine Lymphatic Exam Lymphatic: Absent: adenopathy - Routine Psychiatric Exam Present: cooperative, unable to assess Results - Labs CBC & Chem 7: 10/20/17 04:44 10/20/17 04:44 Microbiology Results: Microbiology 10/18/17 13:05 Knee, Lt Intraop Site Gram Stain - Final 10/18/17 13:05 Knee, Lt Intraop Site Surgical Culture - Final Staphylococcus aureus 10/17/17 06:12 Peripheral/Iv Start Blood Culture - Preliminary No Growth After 3 Days 10/17/17 06:05 Peripheral/Iv Start Blood Culture - Preliminary No Growth After 3 Days 10/16/17 09:17 Aspirate, Left Knee Gram Stain - Final 10/16/17 09:17 Aspirate, Left Knee Body Fluid Culture - Final Staphylococcus aureus Assessment and Plan (1) Septic shock Current visit: Yes Status: Acute Assessment and Plan: Assessment Septic shock - lactate >5; SIRS = bandemia, tachycardia; resolved SHOSHANA bacteremia Septic joint, left knee, SHOSHANA Schizoaffective disorder DM type 2 Constipation Allergic rhinitis HTN Hyperlipidemia Osteopenia Vit D deficiency Low normal vitamin B12 level Osteochondrosis right foot Tobacco dependency Obesity with BMI 35.8 Plan Continue with cefazolin 2 grams IV q 8 hours - Dr Loera rec 6 week course of antibiotics (through 11/29/17). Needs weekly CBC w/ diff, BMP and CRP. Still requiring O2. Encourage IS and activity. Continues on B12 injections daily through 10/26 (then convert to oral if MMA is nl). MMA still pending. BS's remain elevated - increase metformin to 1000mg BID with meals. Hold off on adjusting insulin since recently starting/increasing metformin. Continue SSI. Repeat blood cultures - no growth after 3 days. BP's stable. Afebrile. Labs stable. DVT Prophylaxis: SCD's, Lovenox Resuscitation Status: Full Code - Time spent with patient Time with patient PN: 25 minutes - Physician Narrative Physician: Fernando Mcdaniel MD Narrative: Date: 10/20/17 Time: 2020 Have independently interviewed & examined pt. Chart reviewed. Case discussed with CM & my PA. Care plan developed with my supervision; agree with above. Doing okay. Notes some pain to left knee, worse with moving. No f/c. Breathing well. Lungs: clear bilaterally, no distress CV: regular AB: soft nt/nd MSE: awake alert Plan: Continue with antibiotic. metformin increased. CM checking into Skilled options as will need 6 week course on IV antibiotics. Continue with supportive care. Hospital Course Summary Disclaimer: The visit summary below is not to be considered part of the above Progress Note. Hospital Course: 10/15/17 Admit, inpatient status under the hospitalist service. PCP: Dr. Carranza. Septic shock secondary to septic left knee -30 ml/kg fluid bolus ordered -recheck lactate to ensure downward trend -start vanco/cefepime for coverage -follow results of culture from 10/13/17 -consults placed for Dr. Loera & Dr. Leahy on 10/18/17 -recheck crp and procalcitonin on 10/17/17 -will likely need pt/ot eval prior to discharge DM2 -monitor sugars -resume meds Schizoaffective d/o -home meds resumed 10/16/17 Hemodynamically stable overnight, recent wound culture and blood culture on admission positive for staph aureus. Knee aspirated with gram-positive cocci. Dr. Loera to see on Wednesday, or throat consultation initiated today. May require RAMO. Continue vancomycin-attempting to obtain further information regarding nature of patient's penicillin allergy. Guardian has no information. Discontinue cefepime. 10/17/17 Patient is alert and feeling fairly well today. Continue Vancomycin. Ortho notes reviewed- potentially to OR on Wednesday for washout of knee and removal of patellar wire. NPO @ MN +1/2 BC on admission. Follow up BC NGTD. Await c/s on both cx. May need RAMO. Dr. Loera to be consulted in AM. Continue home psychiatric medications. Monitor carefully on Tramadol. Continue daily laxatives- no BM recorded since admission. Will need to monitor closely. BG is fairly well controlled. Hold metformin today after evening dose pending OR tomorrow. 10/18/17 OP DAY: Arthroscopic irrigation and debridement, left knee, with open deep hardware removal and bone biopsy of patella. Discussed with Dr. Loera earlier today-blood culture on presentation oxacillin/ methicillin sensitive. Vancomycin discontinued and cefazolin initiated at 2 g every 8 hours. 6 weeks of antibiotics anticipated. Subsequently staph aureus in knee aspirate has been identified as oxacillin sensitive as well. Hardware removed from her left knee this afternoon in conjunction with I&D and biopsy of the patella. Repeat blood cultures drawn yesterday negative thus far. Blood pressure borderline high consistently, initiate lisinopril 5mg daily. Blood sugars stable, may require glucose infusion if remains sedated and does not eat this evening. B-12 low; methylmalonic acid to be obtained in the morning after which daily B- 12 injections will be initiated 1 week. Dosing thereafter can be converted to oral if patient maintaining good oral intake and methylmalonic acid is normal. If MMA is abnormal I would favor continuation of B-12 injections. 10/19/17 POD #1 Continue with cefazolin 2 grams IV q 8 hours - anticipate 6 week course of antibiotics. Will place PICC line due to shelter need for IV antibiotics. Ortho recommends weight bearing as tolerated. Will consult PT/OT to help functional status. Restart metformin 500mg BID with meals. Monitor sugars. 10/20/17 POD #2 Continue with cefazolin 2 grams IV q 8 hours - Dr Loera rec 6 week course of antibiotics (through 11/29/17). Needs weekly CBC w/ diff, BMP and CRP. Dr Loera does not feel RAMO would be beneficial unless persistent bacteremia occurs. Still requiring O2. Encourage IS and activity. BS's remain elevated - increase metformin to 1000mg BID with meals. Repeat blood cultures - no growth after 3 days. BP's stable. Afebrile. Labs stable. CM looking into skilled options for continued IV antibiotics.
[2017-10-20] MEDS: METFORMIN 1,000 MG TABLET PO SCH (17:48)
[2017-10-20] MEDS: SIMVASTATIN 40 MG TABLET PO SCH (20:57)
[2017-10-20] MEDS: TRAMADOL 50 MG TABLET PO PRN (22:17)
[2017-10-21] MEDS: CEFAZOLIN 2 G in NS 100 ML IV SCH ×3 (01:02→17:31)
[2017-10-21] MEDS: SALINE FLUSH 10ml SYRINGE IVF PRN ×4 (01:02→13:16)
[2017-10-21] MEDS: TRAMADOL 50 MG TABLET PO PRN ×2 (04:31→15:15)
[2017-10-21] MEDS: INSULIN ASPART 100unit/ml INJECTION SQ PRN ×4 (05:47→21:41)
[2017-10-21] MEDS: POLYETHYL GLYCOL 3350 17gm PACKET PO SCH (08:11)
[2017-10-21] MEDS: CYANOCOBALAMIN (B-12) 1,000mcg/ml INJECTION IM SCH (08:11)
[2017-10-21] MEDS: ENOXAPARIN 40 MG/0.4 ML INJECTION SQ SCH (08:11)
[2017-10-21] MEDS: INSULIN ASPART 100unit/ml INJECTION SQ SCH ×3 (08:11→17:31)
[2017-10-21] MEDS: DIVALPROEX 500 MG TABLET PO SCH ×2 (08:12→21:41)
[2017-10-21] MEDS: QUETIAPINE 200 MG TABLET PO SCH ×3 (08:12→21:41)
[2017-10-21] MEDS: CETIRIZINE 10 MG TABLET PO SCH (08:12)
[2017-10-21] MEDS: ZIPRASIDONE 40 MG CAPSULE PO SCH ×3 (08:12→21:42)
[2017-10-21] MEDS: ACETAMINOPHEN 325 MG TABLET PO SCH ×3 (08:13→21:42)
[2017-10-21] MEDS: Bisacodyl EC TAB 5 MG TABLET PO SCH (08:13)
[2017-10-21] MEDS: LISINOPRIL 5 MG TABLET PO SCH (08:13)
[2017-10-21] MEDS: METFORMIN 1,000 MG TABLET PO SCH ×2 (08:13→17:28)
[2017-10-21] MEDS: ASPIRIN *EC* 81 MG TABLET PO SCH (08:14)
--- NOTE | 2017-10-21 10:58 | Progress Note ---
- Date 10/21/17 Subjective: F/U: Septic joint, left knee, SHOSHANA/Septic shock Doing okay. Knee pain varies. Does find it very challenging (and somewhat frightening) to be up-pain and knee not moving like normal. Eating well-not having nausea or ab pain. Stools moving. Breathing well. No f/c. Objective Vital signs: Temperature 97 F 10/21/17 08:09 Pulse Rate 84 10/21/17 08:09 Respiratory Rate 14 10/21/17 08:09 Blood Pressure 145/83 H 10/21/17 08:09 Pulse Oximetry 92 10/21/17 08:09 Height/Weight/BMI: Height 1.63 m Weight 92.8 kg Body Mass Index 37.0 - Constitutional Present: well nourished, well developed, average body habitus, obese, cooperative. Absent: combative, agitated - Routine HEENT Exam Head: Present: normocephalic, atraumatic Eye: Present: EOMI, PERRL ENT: Present: mucous membranes moist - Routine Respiratory Exam Present: CTA bilaterally. Absent: rales, respiratory distress, rhonchi, stridor , wheezes, crackles - Routine Cardiovascular Exam Present: RRR, no murmur - Routine Abdominal Exam Present: soft, normoactive bowel sounds, non distended, non tender. Absent: guarding - Routine Extremities Exam Present: pulses intact. Absent: cyanosis, clubbing - Routine Musculoskeletal Exam Musculoskeletal: Present: no clubbing or cyanosis - Routine Skin Exam Present: dry, warm - Routine Neurological Exam Present: alert, CN II-XII intact, moving all extremities, vision grossly intact , hearing grossly intact. Absent: motor deficit - Routine Psychiatric Exam Present: normal affect, cooperative. Absent: agitated, paranoid Results - Labs CBC & Chem 7: 10/21/17 04:48 10/21/17 04:48 Microbiology Results: Microbiology 10/17/17 06:05 Peripheral/Iv Start Blood Culture - Preliminary No Growth After 4 Days 10/17/17 06:12 Peripheral/Iv Start Blood Culture - Preliminary No Growth After 4 Days 10/18/17 13:05 Knee, Lt Intraop Site Gram Stain - Final 10/18/17 13:05 Knee, Lt Intraop Site Surgical Culture - Final Staphylococcus aureus 10/16/17 09:17 Aspirate, Left Knee Gram Stain - Final 10/16/17 09:17 Aspirate, Left Knee Body Fluid Culture - Final Staphylococcus aureus Assessment and Plan (1) Septic shock Current visit: Yes Status: Acute Assessment and Plan: Assessment Septic shock - lactate >5; SIRS = bandemia, tachycardia; resolved SHOSHANA bacteremia Septic joint, left knee, SHOSHANA Schizoaffective disorder DM type 2 Constipation Allergic rhinitis HTN Hyperlipidemia Osteopenia Vit D deficiency Low normal vitamin B12 level Osteochondrosis right foot Tobacco dependency Obesity with BMI 35.8 Plan Continue with cefazolin 2 grams IV q 8 hours. Tolerating well. PT/OT to help with functional status. Continue pain control. Metformin at home dose; monitor sugars and check A1c - may need increased mealtime insulin. CM looking into skilled arrangement for continued IV antibiotics. Recheck BMP, CBC, and CRP in am due to resolving sepsis and medication use. Case discussed with CM. Time spent with patient care 25 minutes. DVT Prophylaxis: SCD's, Lovenox Resuscitation Status: Full Code - Time spent with patient Time with patient PN: 25 minutes - Physician Narrative Physician: Fernando Mcdaniel MD Narrative: Date: 10/21/17 Time: 1055 Hospital Course Summary Disclaimer: The visit summary below is not to be considered part of the above Progress Note. Hospital Course: 10/15/17 Admit, inpatient status under the hospitalist service. PCP: Dr. Carranza. Septic shock secondary to septic left knee -30 ml/kg fluid bolus ordered -recheck lactate to ensure downward trend -start vanco/cefepime for coverage -follow results of culture from 10/13/17 -consults placed for Dr. Loera & Dr. Leahy on 10/18/17 -recheck crp and procalcitonin on 10/17/17 -will likely need pt/ot eval prior to discharge DM2 -monitor sugars -resume meds Schizoaffective d/o -home meds resumed 10/16/17 Hemodynamically stable overnight, recent wound culture and blood culture on admission positive for staph aureus. Knee aspirated with gram-positive cocci. Dr. Loera to see on Wednesday, or throat consultation initiated today. May require RAMO. Continue vancomycin-attempting to obtain further information regarding nature of patient's penicillin allergy. Guardian has no information. Discontinue cefepime. 10/17/17 Patient is alert and feeling fairly well today. Continue Vancomycin. Ortho notes reviewed- potentially to OR on Wednesday for washout of knee and removal of patellar wire. NPO @ MN +1/2 BC on admission. Follow up BC NGTD. Await c/s on both cx. May need RAMO. Dr. Loera to be consulted in AM. Continue home psychiatric medications. Monitor carefully on Tramadol. Continue daily laxatives- no BM recorded since admission. Will need to monitor closely. BG is fairly well controlled. Hold metformin today after evening dose pending OR tomorrow. 10/18/17 OP DAY: Arthroscopic irrigation and debridement, left knee, with open deep hardware removal and bone biopsy of patella. Discussed with Dr. Loera earlier today-blood culture on presentation oxacillin/ methicillin sensitive. Vancomycin discontinued and cefazolin initiated at 2 g every 8 hours. 6 weeks of antibiotics anticipated. Subsequently staph aureus in knee aspirate has been identified as oxacillin sensitive as well. Hardware removed from her left knee this afternoon in conjunction with I&D and biopsy of the patella. Repeat blood cultures drawn yesterday negative thus far. Blood pressure borderline high consistently, initiate lisinopril 5mg daily. Blood sugars stable, may require glucose infusion if remains sedated and does not eat this evening. B-12 low; methylmalonic acid to be obtained in the morning after which daily B- 12 injections will be initiated 1 week. Dosing thereafter can be converted to oral if patient maintaining good oral intake and methylmalonic acid is normal. If MMA is abnormal I would favor continuation of B-12 injections. 10/19/17 POD #1 Continue with cefazolin 2 grams IV q 8 hours - anticipate 6 week course of antibiotics. 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 Ortho recommends weight bearing as tolerated. Will consult PT/OT to help functional status. Restart metformin 500mg BID with meals. Monitor sugars. 10/20/17 POD #2 Continue with cefazolin 2 grams IV q 8 hours - Dr Loera rec 6 week course of antibiotics (through 11/29/17). Needs weekly CBC w/ diff, BMP and CRP. Dr Loera does not feel RAMO would be beneficial unless persistent bacteremia occurs. Still requiring O2. Encourage IS and activity. BS's remain elevated - increase metformin to 1000mg BID with meals. Repeat blood cultures - no growth after 3 days. BP's stable. Afebrile. Labs stable. CM looking into skilled options for continued IV antibiotics. 10/21/17 POD #3 Continue with cefazolin 2 grams IV q 8 hours. Tolerating well. PT/OT to help with functional status. Continue pain control. Metformin at home dose; monitor sugars and check A1c - may need increased mealtime insulin. CM looking into skilled arrangement for continued IV antibiotics.
--- NOTE | 2017-10-21 11:07 | Orthopedic Progress Note ---
Date: Date: 10/21/17 Time: 1104 Subjective/Severity of Illness: Maria Fernanda is lying in bed this morning on rounds. Nursing reports patient has been refusing to work with therapy. Patient states she "has good and bad days". Pain continues to vary, but states overall improved from surgery. Orthopedic Exam Vital signs: Temperature 96.8 F 10/19/17 07:00 Pulse Rate 93 10/19/17 07:00 Respiratory Rate 18 10/19/17 07:00 Blood Pressure 141/80 H 10/19/17 07:00 Pulse Oximetry 90 10/19/17 08:02 - Constitutional General Appearance: Present: alert, cooperative, no acute distress - Respiratory Exam Present: non-labored - Cardiovascular Exam Present: pedal pulses intact - Extremities Exam Present: pulses intact. Absent: cyanosis, clubbing, calf tenderness - Dressing Dressing: dry, intact Comments: scant amount of bloody drainage. replaced xeroform dressing, gauze, kerlex, and renan wrap. - Detailed Lower Extremity Exam Knee: Left swelling, Left tenderness, Left decreased ROM (minimal flexion) - Integumentary Exam Present: pink, warm, dry - Lymphatic Lymphatic: Present: adenopathy - Neurological Exam Present: intact to light touch, no deficits - Psychiatric Exam Present: alert - Labs Result Diagrams: 10/21/17 04:48 10/21/17 04:48 Abnormal lab results 10/21/17 10/21/17 Range/Units 04:48 04:48 WBC 11.9 H (4.5-11.0) T/MM3 RBC 3.66 L (4.00-5.20) M/MM3 Hgb 11.6 L (12-16) GM/DL Hct 35.9 L (36-46) % Lymphocytes % (Manual) 14.0 L (23-45) % Monocytes % (Manual) 19.0 H (0-9.0) % Metamyelocytes % 2.0 H (0-0) % Monocytes # (Manual) 2.3 H (0-0.8) T/MM3 Glucose 241 H (65-110) MG/DL Calculated Osmolality 282 H (261-280) MOSM/KG H & H 10/16/17 10/17/17 10/18/17 Range/Units 04:44 06:05 04:18 Hgb 12.0 11.4 L 11.1 L (12-16) GM/DL Hct 37.6 34.9 L 34.1 L (36-46) % 10/19/17 10/20/17 10/21/17 Range/Units 04:00 04:44 04:48 Hgb 11.6 L 11.0 L 11.6 L (12-16) GM/DL Hct 35.4 L 33.9 L 35.9 L (36-46) % Orthopedic Assessment and Plan (1) Infection of left knee Status: Acute Assessment and Plan: Left knee aspiration and Bone biopsy intra op gram stain staph aureus. Intra op bone pathology- acute osteomyelitis- on Cefazolin q8hr per Dr. Loera WBAT- PT/OT. Encouraged patient to work with therapy on function/mobility Medical management per hospitalist. Thank you for consultation. Hospital Course Summary Disclaimer: The visit summary below is not to be considered part of the above Progress Note. Hospital Course: 10/15/17 Admit, inpatient status under the hospitalist service. PCP: Dr. Carranza. Septic shock secondary to septic left knee -30 ml/kg fluid bolus ordered -recheck lactate to ensure downward trend -start vanco/cefepime for coverage -follow results of culture from 10/13/17 -consults placed for Dr. Loera & Dr. eLahy on 10/18/17 -recheck crp and procalcitonin on 10/17/17 -will likely need pt/ot eval prior to discharge DM2 -monitor sugars -resume meds Schizoaffective d/o -home meds resumed 10/16/17 Hemodynamically stable overnight, recent wound culture and blood culture on admission positive for staph aureus. Knee aspirated with gram-positive cocci. Dr. Loera to see on Wednesday, or throat consultation initiated today. May require RAMO. Continue vancomycin-attempting to obtain further information regarding nature of patient's penicillin allergy. Guardian has no information. Discontinue cefepime. 10/17/17 Patient is alert and feeling fairly well today. Continue Vancomycin. Ortho notes reviewed- potentially to OR on Wednesday for washout of knee and removal of patellar wire. NPO @ MN +1/2 BC on admission. Follow up BC NGTD. Await c/s on both cx. May need RAMO. Dr. Loera to be consulted in AM. Continue home psychiatric medications. Monitor carefully on Tramadol. Continue daily laxatives- no BM recorded since admission. Will need to monitor closely. BG is fairly well controlled. Hold metformin today after evening dose pending OR tomorrow. 10/18/17 OP DAY: Arthroscopic irrigation and debridement, left knee, with open deep hardware removal and bone biopsy of patella. Discussed with Dr. Loera earlier today-blood culture on presentation oxacillin/ methicillin sensitive. Vancomycin discontinued and cefazolin initiated at 2 g every 8 hours. 6 weeks of antibiotics anticipated. Subsequently staph aureus in knee aspirate has been identified as oxacillin sensitive as well. Hardware removed from her left knee this afternoon in conjunction with I&D and biopsy of the patella. Repeat blood cultures drawn yesterday negative thus far. Blood pressure borderline high consistently, initiate lisinopril 5mg daily. Blood sugars stable, may require glucose infusion if remains sedated and does not eat this evening. B-12 low; methylmalonic acid to be obtained in the morning after which daily B- 12 injections will be initiated 1 week. Dosing thereafter can be converted to oral if patient maintaining good oral intake and methylmalonic acid is normal. If MMA is abnormal I would favor continuation of B-12 injections. 10/19/17 POD #1 Continue with cefazolin 2 grams IV q 8 hours - anticipate 6 week course of antibiotics. Will place PICC line due to [facility] need for IV antibiotics. Ortho recommends weight bearing as tolerated. Will consult PT/OT to help functional status. Restart metformin 500mg BID with meals. Monitor sugars. 10/20/17 POD #2 Continue with cefazolin 2 grams IV q 8 hours - Dr Loera rec 6 week course of antibiotics (through 11/29/17). Needs weekly CBC w/ diff, BMP and CRP. Dr Loera does not feel RAMO would be beneficial unless persistent bacteremia occurs. Still requiring O2. Encourage IS and activity. BS's remain elevated - increase metformin to 1000mg BID with meals. Repeat blood cultures - no growth after 3 days. BP's stable. Afebrile. Labs stable. CM looking into skilled options for continued IV antibiotics. 10/21/17 POD #3 Continue with cefazolin 2 grams IV q 8 hours. Tolerating well. PT/OT to help with functional status. Continue pain control. Metformin at home dose; monitor sugars and check A1c - may need increased mealtime insulin. CM looking into skilled arrangement for continued IV antibiotics.
[2017-10-21] MEDS: SIMVASTATIN 40 MG TABLET PO SCH (21:42)
[2017-10-21 23:19] VITALS: O2SAT 91
[2017-10-22] MEDS: NS FLUSH BAG 500ml IV PRN (00:08)
[2017-10-22] MEDS: CEFAZOLIN 2 G in NS 100 ML IV SCH ×2 (00:08→09:12)
[2017-10-22] MEDS: TRAMADOL 50 MG TABLET PO PRN (04:45)
[2017-10-22] MEDS: IBUPROFEN 600 MG TABLET PO PRN (04:50)
[2017-10-22 08:40] VITALS: BP 132/86; PULSE 79; RESP 14; TEMP 95.6
[2017-10-22] MEDS: QUETIAPINE 200 MG TABLET PO SCH ×2 (08:56→15:14)
[2017-10-22] MEDS: POLYETHYL GLYCOL 3350 17gm PACKET PO SCH (08:56)
[2017-10-22] MEDS: CYANOCOBALAMIN (B-12) 1,000mcg/ml INJECTION IM SCH (08:56)
[2017-10-22] MEDS: ENOXAPARIN 40 MG/0.4 ML INJECTION SQ SCH (08:56)
[2017-10-22] MEDS: ASPIRIN *EC* 81 MG TABLET PO SCH (08:57)
[2017-10-22] MEDS: ACETAMINOPHEN 325 MG TABLET PO SCH ×2 (08:57→15:14)
[2017-10-22] MEDS: DIVALPROEX 500 MG TABLET PO SCH (08:58)
[2017-10-22] MEDS: METFORMIN 1,000 MG TABLET PO SCH (08:58)
[2017-10-22] MEDS: CETIRIZINE 10 MG TABLET PO SCH (08:58)
[2017-10-22] MEDS: LISINOPRIL 5 MG TABLET PO SCH (08:58)
[2017-10-22] MEDS: INSULIN ASPART 100unit/ml INJECTION SQ SCH ×2 (08:59→12:00)
[2017-10-22] MEDS: Bisacodyl EC TAB 5 MG TABLET PO SCH (08:59)
[2017-10-22] MEDS: ZIPRASIDONE 40 MG CAPSULE PO SCH ×2 (09:01→12:01)
--- NOTE | 2017-10-22 09:42 | ID Progress Note ---
Subjective Date: 10/22/17 Subjective: He states that her pain is not controlled today. She denies any nausea or diarrhea or fever. She is eating breakfast when I evaluated her today. Exam Vital Signs: Temperature 95.6 F L 10/22/17 07:00 Pulse Rate 79 10/22/17 07:00 Respiratory Rate 14 10/22/17 07:00 Blood Pressure 132/86 10/22/17 07:00 Pulse Oximetry 91 10/22/17 07:00 Height/Weight/BMI: Height 1.63 m Weight 91.9 kg Body Mass Index 37.0 - Constitutional Present: no acute distress, well nourished, well developed - Routine HEENT Exam Head: Present: normocephalic, atraumatic Eye: Present: EOMI, PERRL ENT: Present: mucous membranes moist, oropharynx clear - Routine Neck Exam Present: supple - Routine Respiratory Exam Present: CTA bilaterally - Routine Cardiovascular Exam Present: RRR - Routine Abdominal Exam Present: soft, normoactive bowel sounds, non distended, non tender - Routine Exam Comments: no espinal - Routine Extremities Exam Comments: R knee is wrapped - Routine Skin Exam Absent: rash Comments: RUE PICC site ok. R knee wrapped - Routine Neurological Exam Present: alert, CN II-XII intact, normal speech. Absent: motor deficit - Routine Psychiatric Exam Present: normal affect Results - Labs CBC & Chem 7: 10/22/17 04:42 10/22/17 04:42 Microbiology Results: Microbiology 10/17/17 06:12 Peripheral/Iv Start Blood Culture - Final No Growth After 5 Days 10/17/17 06:05 Peripheral/Iv Start Blood Culture - Final No Growth After 5 Days 10/18/17 13:05 Knee, Lt Intraop Site Gram Stain - Final 10/18/17 13:05 Knee, Lt Intraop Site Surgical Culture - Final Staphylococcus aureus 10/16/17 09:17 Aspirate, Left Knee Gram Stain - Final 10/16/17 09:17 Aspirate, Left Knee Body Fluid Culture - Final Staphylococcus aureus (MSSA) 10/15/17 Blood cultures 2/2 with MSSA Impression: Septicemia secondary to musculoskeletal source Septicemia with MSSA Septic arthritis R knee, with infected patellar hardware, s/p I&D with hardware removal R patella and bone biopsy 10/18/17. Biopsy showed acute osteomyelitis. H/o R patellar fracture s/p repair DM II, not IR Schizoaffective disorder Vague, undefined allergies to PCN, sulfa, tetracycline Recommendation: Continue Ancef 2gm IV q8 hours. She will need 6 weeks of IV antibiotics from the date of surgery, so through 11/29/17. Recommend weekly CBC with diff, BMP, CRP. 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
[2017-10-22] MEDS: INSULIN ASPART 100unit/ml INJECTION SQ PRN (12:01)
--- NOTE | 2017-10-22 14:28 | Progress Note ---
- Date 10/22/17 Subjective: F/U: Septic joint, left knee, SHOSHANA/Septic shock Doing well today. Up to chair. Pain to knee about the same. Breathing well. Appetite stable. Bowel function stable. Not having F/C. Objective Vital signs: Temperature 95.6 F L 10/22/17 07:00 Pulse Rate 79 10/22/17 07:00 Respiratory Rate 14 10/22/17 07:00 Blood Pressure 132/86 10/22/17 07:00 Pulse Oximetry 91 10/22/17 07:00 Height/Weight/BMI: Height 1.63 m Weight 91.9 kg Body Mass Index 37.0 - Constitutional Present: well nourished, well developed, obese, cooperative. Absent: agitated - Routine HEENT Exam Head: Present: normocephalic, atraumatic Eye: Present: EOMI, PERRL ENT: Present: mucous membranes moist - Routine Respiratory Exam Present: decreased breath sounds. Absent: rales, respiratory distress, rhonchi , wheezes, crackles - Routine Cardiovascular Exam Present: RRR, no murmur - Routine Abdominal Exam Present: soft, non distended, non tender. Absent: normoactive bowel sounds ( Decreased) - Routine Extremities Exam Present: pulses intact. Absent: cyanosis, clubbing - Routine Musculoskeletal Exam Musculoskeletal: Present: no clubbing or cyanosis - Routine Skin Exam Present: dry, warm - Routine Neurological Exam Present: alert, moving all extremities, vision grossly intact, hearing grossly intact, normal speech. Absent: motor deficit, altered mental status - Routine Psychiatric Exam Present: normal affect, cooperative. Absent: anxious, agitated Results - Labs CBC & Chem 7: 10/22/17 04:42 10/22/17 04:42 Microbiology Results: Microbiology 10/17/17 06:12 Peripheral/Iv Start Blood Culture - Final No Growth After 5 Days 10/17/17 06:05 Peripheral/Iv Start Blood Culture - Final No Growth After 5 Days 10/18/17 13:05 Knee, Lt Intraop Site Gram Stain - Final 10/18/17 13:05 Knee, Lt Intraop Site Surgical Culture - Final Staphylococcus aureus 10/16/17 09:17 Aspirate, Left Knee Gram Stain - Final 10/16/17 09:17 Aspirate, Left Knee Body Fluid Culture - Final Staphylococcus aureus Assessment and Plan (1) Septic shock Current visit: Yes Status: Acute Assessment and Plan: Assessment Septic shock - lactate >5; SIRS = bandemia, tachycardia; resolved SHOSHANA bacteremia Septic joint, left knee, SHOSHANA Schizoaffective disorder DM type 2 Constipation Allergic rhinitis HTN Hyperlipidemia Osteopenia Vit D deficiency Low normal vitamin B12 level Osteochondrosis right foot Tobacco dependency Obesity with BMI 35.8 Plan Continue with cefazolin 2 grams IV q 8 hours. Will need to continue through 11/29. has made arrangements for skilled care at [facility] in [place]. Discussed case with Dr Quintanilla; graciously agreed to accept. Will discharge for skilled care. Weight bearing as tolerated. PT/OT to help with improving functional status. IS for pulmonary toilet. Would continue SCD and Lovenox for DVT prevention while on skilled. Psychiatric status stable - continue with medications. Continue lisinopril started during hospitalization for BM control and DM. Continue Vit B12 1000mcg daily due to low B12 level; may change to by mouth. Needs BMP, CRP, and CBC weekly -- can send results to Dr Loera. Would have F/U with Dr Leahy in about [address] Vasquez to follow during skilled care. Care to return to Dr Carranza when patient medically stable to return to [facility] in [place]. See orders for details. Case discussed with CRISTOPHER and Dr Vasquez. Time spent with patient care and discharge greater than 30 minutes. DVT Prophylaxis: SCD's, Lovenox Resuscitation Status: Full Code - Physician Narrative Physician: Fernando Mcdaniel MD Narrative: Date: 10/22/17 Time: 1425 Hospital Course Summary Disclaimer: The visit summary below is not to be considered part of the above Progress Note. Hospital Course: 10/15/17 Admit, inpatient status under the hospitalist service. PCP: Dr. Carranza. Septic shock secondary to septic left knee -30 ml/kg fluid bolus ordered -recheck lactate to ensure downward trend -start vanco/cefepime for coverage -follow results of culture from 10/13/17 -consults placed for Dr. Loera & Dr. Leahy on 10/18/17 -recheck crp and procalcitonin on 10/17/17 -will likely need pt/ot eval prior to discharge DM2 -monitor sugars -resume meds Schizoaffective d/o -home meds resumed 10/16/17 Hemodynamically stable overnight, recent wound culture and blood culture on admission positive for staph aureus. Knee aspirated with gram-positive cocci. Dr. Loera to see on Wednesday, or throat consultation initiated today. May require RAMO. Continue vancomycin-attempting to obtain further information regarding nature of patient's penicillin allergy. Guardian has no information. Discontinue cefepime. 10/17/17 Patient is alert and feeling fairly well today. Continue Vancomycin. Ortho notes reviewed- potentially to OR on Wednesday for washout of knee and removal of patellar wire. NPO @ MN +1/2 BC on admission. Follow up BC NGTD. Await c/s on both cx. May need RAMO. Dr. Loera to be consulted in AM. Continue home psychiatric medications. Monitor carefully on Tramadol. Continue daily laxatives- no BM recorded since admission. Will need to monitor closely. BG is fairly well controlled. Hold metformin today after evening dose pending OR tomorrow. 10/18/17 OP DAY: Arthroscopic irrigation and debridement, left knee, with open deep hardware removal and bone biopsy of patella. Discussed with Dr. Loera earlier today-blood culture on presentation oxacillin/ methicillin sensitive. Vancomycin discontinued and cefazolin initiated at 2 g every 8 hours. 6 weeks of antibiotics anticipated. Subsequently staph aureus in knee aspirate has been identified as oxacillin sensitive as well. Hardware removed from her left knee this afternoon in conjunction with I&D and biopsy of the patella. Repeat blood cultures drawn yesterday negative thus far. Blood pressure borderline high consistently, initiate lisinopril 5mg daily. Blood sugars stable, may require glucose infusion if remains sedated and does not eat this evening. B-12 low; methylmalonic acid to be obtained in the morning after which daily B- 12 injections will be initiated 1 week. Dosing thereafter can be converted to oral if patient maintaining good oral intake and methylmalonic acid is normal. If MMA is abnormal I would favor continuation of B-12 injections. 10/19/17 POD #1 Continue with cefazolin 2 grams IV q 8 hours - anticipate 6 week course of antibiotics. Will place PICC line due to terminal superintendent need for IV antibiotics. Ortho recommends weight bearing as tolerated. Will consult PT/OT to help functional status. Restart metformin 500mg BID with meals. Monitor sugars. 10/20/17 POD #2 Continue with cefazolin 2 grams IV q 8 hours - Dr Loera rec 6 week course of antibiotics (through 11/29/17). Needs weekly CBC w/ diff, BMP and CRP. Dr Loera does not feel RAMO would be beneficial unless persistent bacteremia occurs. Still requiring O2. Encourage IS and activity. BS's remain elevated - increase metformin to 1000mg BID with meals. Repeat blood cultures - no growth after 3 days. BP's stable. Afebrile. Labs stable. CM looking into skilled options for continued IV antibiotics. 10/21/17 POD #3 Continue with cefazolin 2 grams IV q 8 hours. Tolerating well. PT/OT to help with functional status. Continue pain control. Metformin at home dose; monitor sugars and check A1c - may need increased mealtime insulin. CM looking into skilled arrangement for continued IV antibiotics. 10/22/17 POD #4 Continue with cefazolin 2 grams IV q 8 hours. Will need to continue through 11/29. CM has made arrangements for skilled care at [facility] in [place]. Discussed case with Dr Quintanilla; graciously agreed to accept. Will discharge for skilled care. Weight bearing as tolerated. PT/OT to help with improving functional status. IS for pulmonary toilet. Would continue SCD and Lovenox for DVT prevention while on skilled. Psychiatric status stable - continue with medications. Continue lisinopril started during hospitalization for BM control and DM. Continue Vit B12 1000mcg daily due to low B12 level; may change to by mouth. Needs BMP, CRP, and CBC weekly -- can send results to Dr Loera. Dr Loera as needed for ID care. Would have F/U with Dr Leahy in about [address] Vasquez to follow during skilled care. Care to return to Dr Carranza when patient medically stable to return to [facility] in [place]. See orders for details.
--- NOTE | 2017-10-22 14:42 | Extended Care Facility Orders ---
Admission Orders Admit to:: Longterm Allergies/Adverse Reactions: Allergies haloperidol [From Haldol] Allergy (Verified 10/15/17 16:48) lithium Allergy (Verified 10/15/17 16:48) Penicillins Allergy (Verified 10/15/17 16:48) Sulfa (Sulfonamide Antibiotics) Allergy (Verified 10/15/17 16:48) tetracycline Allergy (Verified 10/15/17 16:48) Admitting Diagnosis: Sepsis,left lower extremity cellulitis Admitting Physician: Fernando Mcdaniel MD Attending Physician: Dr Vasquez on Skilled Code Status: Full Code Anticiapted Length of Stay: 30 days or less Rehab Potential: fair Rehab Prognosis: fair Diet: Consistent Carbohydrate Diet [DIET] Calorie Level: 2000 Wound/Incision Care: May wrap wound in DURGA wrap. May use Facility Protocol or Standing Orders: Yes May have flu vaccine: Yes Evaluations/Treatment: PT, OT Longterm Certification: I certify that SNF services are required to be given on an Inpatient basis because of the patients need for senior living care on a continuing basis for the condition(s) for which he/she received inpatient hospital services prior to his/her transfer to the SNF. SNF inpatient care is necessary for the following reasons Indication for Longterm: Wound Care/Assessment, Diabetic Assessment, Med Admininistration, Postop Assessment Care, Teach Medication Management, Other ( IV Antibioitics. Skill PT/OT to improve functional status.) - Additional Information In Event of Arrest: Start CPR,call 911,send patient to the ER Resident is Aware of Diagnosis: No (Schizoaffective disorder limits) Referrals: Janusz Leahy MD [Physician] - 2 Days (Ortho follow up in 2 weeks. ) Additional Orders: Will need weekly BMP, CBC and CRP while on antiboitics -- results to Dr Loera. May follow with Dr Loera as needed for ID care. Routine PICC line care. IS q2 hours while awake for pulmonary toilet. Would recommend continuing SCD and Lovenox while on skilled. May use nicotine patch while on skilled care.
--- NOTE | 2017-10-22 15:03 | Discharge Summary ---
Discharge Information Date of admission: 10/15/17 17:24 Anticipated date of discharge: 10/22/17 Attending Physician: Fernando Mcdaniel MD Primary care physician: Humaira Carranza MD Consults: Physician Consult: Alma Delia Loera Reason For Exam: septic left knee Physician Consult: Janusz Leahy Reason For Exam: septic left knee PT/OT - Discharge Diagnosis (1) Septic shock Status: Acute Discharge diagnosis Septic shock - lactate >5; SIRS = bandemia, tachycardia; resolved Associated conditions and complications SHOSHANA bacteremia Septic joint, left knee, SHOSHANA Schizoaffective disorder DM type 2 Constipation Allergic rhinitis HTN Hyperlipidemia Osteopenia Vit D deficiency Low normal vitamin B12 level Osteochondrosis right foot Tobacco dependency Obesity with BMI 35.8 - Procedures Procedures: DATE OF PROCEDURE: 10/18/2017 PREOPERATIVE DIAGNOSIS Left knee septic arthritis with anterior knee wound and retained patellar hardware. POSTOPERATIVE DIAGNOSIS Left knee septic arthritis with anterior knee wound and retained patellar hardware. PROCEDURE Arthroscopic irrigation and debridement, left knee, with open deep hardware removal and bone biopsy of patella. SURGEON Janusz Leahy MD - Laboratory Labs: Admit Lab 10/15/17 16:26 WBC 9.9 Hgb 12.0 Hct 35.0 L MCV 102.3 H MCH 35.1 H Plt Count 250 Neutrophils % (Manual) 52.0 Band Neutrophils % 23.0 H Lymphocytes % (Manual) 8.0 L Monocytes % (Manual) 12.0 H Eosinophils % (Manual) 2.0 Basophils % (Manual) 1.0 Metamyelocytes % 2.0 H Admit Lab 10/15/17 10/15/17 16:26 16:26 Sodium 136 Potassium 3.6 Chloride 99 Carbon Dioxide 20 L Anion Gap 17 H BUN 9.0 Creatinine 0.7 GFR Calculation 86 BUN/Creatinine Ratio 13 Glucose 347 H Calculated Osmolality 275 Calcium 8.8 Total Bilirubin 0.40 Icterus Index < 2 AST 14 ALT 13 Alkaline Phosphatase 62 C-Reactive Protein 176.6 H Total Protein 6.5 Albumin 3.6 Globulin 2.9 Albumin/Globulin Ratio 1.2 Plasma Lactate 5.2 H* Procalcitonin < 0.05 Laboratory Tests 10/17/17 10/19/17 06:05 04:00 Vitamin B12 270 Methylmalonic Acid Pending Laboratory Tests 10/22/17 04:42 Hemoglobin A1c 7.8 H Laboratory Tests 10/15/17 10/17/1710/22/18 16:26 06:05 04:42 C-Reactive Protein 176.6 H 245.4 H 250.3 H 10/22/17 04:42 10/22/17 04:42 - Microbiology Microbiology 10/17/17 06:12 Peripheral/Iv Start Blood Culture - Final No Growth After 5 Days 10/17/17 06:05 Peripheral/Iv Start Blood Culture - Final No Growth After 5 Days 10/18/17 13:05 Knee, Lt Intraop Site Gram Stain - Final 10/18/17 13:05 Knee, Lt Intraop Site Surgical Culture - Final Staphylococcus aureus 10/16/17 09:17 Aspirate, Left Knee Gram Stain - Final 10/16/17 09:17 Aspirate, Left Knee Body Fluid Culture - Final Staphylococcus aureus - Radiology Radiology: Date of Exam: 10/15/17 Type of Exam: US venous Doppler LE LT Findings: There is no evidence for acute deep venous thrombosis in the left thigh. Specifically, serial graded compression was performed from the inguinal ligament to the popliteal bifurcation, on the left thigh, demonstrating appropriate compressibility of the deep venous system. In addition, color and pulsed Doppler demonstrate appropriate spontaneous flow, variation with respiration, and augmentation with calf compression. At the ankle, normal flow is identified in the posterior tibial veins; these vessels are also normal in caliber. Impression: No evidence of acute DVT in the left lower limb. - Date of Exam: 10/15/17 Type of Exam: XR knee LT 3V Findings: There is no acute fracture, dislocation or malalignment identified. Prior internally fixed patellar fracture with an ununited fragment from the inferior pole. Mild osteoarthritis. No obvious joint effusion. Impression: No acute osseous abnormality. History of Present Illness HPI: Maria Fernanda Goldberg is a 57 y/o lady with schizophrenia, who resides at [facility] in [place]. She has at least a 3-month history of left knee infection, and in Jun and July of this year cultures have grown out SHOSHANA. She was treated with a 10-day course of Levaquin in July. Maria Fernanda is an unreliable historian, and records from her residence indicate that she is oriented to self only. Staff report that she has had more delusions over the last 2 weeks (i.e. thinking her mother is Cris Lucia). On 10/12/17, she stopped bearing weight on her left leg, and an open area started having purulent drainage. A culture was obtained on 10/13/17 and preliminary results are showing staph aureus. She was started on Levaquin 250 mg daily on 10/14/17. Staff deny any known fever or chills. The patient denies any other symptoms including headache, weakness, dizziness, sinus/URI sx/cough, sore throat, chest pain, dyspnea, abdominal pain , appetite changes, n/v/d/c, urinary problems. When I inquired about previous knee surgery she described an injury in which she was carrying medical charts and her knee hit the floor, but did not answer appropriately about the surgical intervention. Likewise, while trying to elicit PM&SH, she informed me that she needs to be scheduled for a "blastima" (an appendectomy) and she's already had a "clostima" (a procedure that begins after a woman turns 40 which includes drinking liquids to have babies followed by getting "cathecized"). She was evaluated in the ED, WBC normal at 9.9; bands 23%. Lactate was 5.2 and CRP 176.6. She was given Cefepime in the ED and the 30 ml/kg fluid bolus was started for septic shock. She was admitted to the hospitalist service, inpatient status. For complete details of the H&P refer to that document. Objective Vital signs: Temperature 95.6 F L 10/22/17 07:00 Pulse Rate 79 10/22/17 07:00 Respiratory Rate 14 10/22/17 07:00 Blood Pressure 132/86 10/22/17 07:00 Pulse Oximetry 91 10/22/17 07:00 Height/Weight/BMI: Height 1.63 m Weight 91.9 kg Body Mass Index 37.0 Hospital Course This is a general summary of the patient's hospital course. For more details refer to the complete medical record. Hospital course: 10/15/17 Admit, inpatient status under the hospitalist service. PCP: Dr. Carranza. Septic shock secondary to septic left knee -30 ml/kg fluid bolus ordered -recheck lactate to ensure downward trend -start vanco/cefepime for coverage -follow results of culture from 10/13/17 -consults placed for Dr. Loera & Dr. Leahy on 10/18/17 -recheck crp and procalcitonin on 10/17/17 -will likely need pt/ot eval prior to discharge DM2 -monitor sugars -resume meds Schizoaffective d/o -home meds resumed 10/16/17 Hemodynamically stable overnight, recent wound culture and blood culture on admission positive for staph aureus. Knee aspirated with gram-positive cocci. Dr. Loera to see on Wednesday, or throat consultation initiated today. May require RAMO. Continue vancomycin-attempting to obtain further information regarding nature of patient's penicillin allergy. Guardian has no information. Discontinue cefepime. 10/17/17 Patient is alert and feeling fairly well today. Continue Vancomycin. Ortho notes reviewed- potentially to OR on Wednesday for washout of knee and removal of patellar wire. NPO @ MN +1/2 BC on admission. Follow up BC NGTD. Await c/s on both cx. May need RAMO. Dr. Loera to be consulted in AM. Continue home psychiatric medications. Monitor carefully on Tramadol. Continue daily laxatives- no BM recorded since admission. Will need to monitor closely. BG is fairly well controlled. Hold metformin today after evening dose pending OR tomorrow. 10/18/17 OP DAY: Arthroscopic irrigation and debridement, left knee, with open deep hardware removal and bone biopsy of patella. Discussed with Dr. Loera earlier today-blood culture on presentation oxacillin/ methicillin sensitive. Vancomycin discontinued and cefazolin initiated at 2 g every 8 hours. 6 weeks of antibiotics anticipated. Subsequently staph aureus in knee aspirate has been identified as oxacillin sensitive as well. Hardware removed from her left knee this afternoon in conjunction with I&D and biopsy of the patella. Repeat blood cultures drawn yesterday negative thus far. Blood pressure borderline high consistently, initiate lisinopril 5mg daily. Blood sugars stable, may require glucose infusion if remains sedated and does not eat this evening. B-12 low; methylmalonic acid to be obtained in the morning after which daily B- 12 injections will be initiated 1 week. Dosing thereafter can be converted to oral if patient maintaining good oral intake and methylmalonic acid is normal. If MMA is abnormal I would favor continuation of B-12 injections. 6 POD #1 Continue with cefazolin 2 grams IV q 8 hours - anticipate 6 week course of antibiotics. Will place PICC line due to floor helper need for IV antibiotics. Ortho recommends weight bearing as tolerated. Will consult PT/OT to help functional status. Restart metformin 500mg BID with meals. Monitor sugars. 10/20/17 POD #2 Continue with cefazolin 2 grams IV q 8 hours - Dr Loera rec 6 week course of antibiotics (through 11/29/17). Needs weekly CBC w/ diff, BMP and CRP. Dr Loera does not feel RAMO would be beneficial unless persistent bacteremia occurs. Still requiring O2. Encourage IS and activity. BS's remain elevated - increase metformin to 1000mg BID with meals. Repeat blood cultures - no growth after 3 days. BP's stable. Afebrile. Labs stable. CM looking into skilled options for continued IV antibiotics. 6 POD #3 Continue with cefazolin 2 grams IV q 8 hours. Tolerating well. PT/OT to help with functional status. Continue pain control. Metformin at home dose; monitor sugars and check A1c - may need increased mealtime insulin. CM looking into skilled arrangement for continued IV antibiotics. 6 POD #4 Continue with cefazolin 2 grams IV q 8 hours. Will need to continue through 11/29. CM has made arrangements for skilled care at [facility] in [place]. Discussed case with Dr Quintanilla; graciously agreed to accept. Will discharge for skilled care. Weight bearing as tolerated. PT/OT to help with improving functional status. IS for pulmonary toilet. Would continue SCD and Lovenox for DVT prevention while on skilled. Psychiatric status stable - continue with medications. Continue lisinopril started during hospitalization for BM control and DM. Continue Vit B12 1000mcg daily due to low B12 level; may change to by mouth. Needs BMP, CRP, and CBC weekly -- can send results to Dr Loera. Dr Loera as needed for ID care. Would have F/U with Dr Leahy in about [address] Vasquez to follow during skilled care. Care to return to Dr Carranza when patient medically stable to return to [facility] in [place]. See orders for details. Time spent with patient: discharge greater than 30 minutes Resuscitation Status: Full Code Discharge Plan - Discharge Disposition Discharge Date: 10/22/17 Disposition: 03 To [facility] Not [facility] (SNF) *Condition: Stable Reason For Visit (Visit label in EMR): sepsis,left lower extremity cellulitis - Discharge Medications *Discharge Medications: New Cefazolin [Kefzol 1 gm Vial] 2 g IV Q8HR #114 vial Cyanocobalamin (Vitamin B-12) [Vitamin B-12] 1,000 mcg PO DAILY #90 tab Enoxaparin Sodium [Lovenox] 40 mg SQ DAILY syringe Lisinopril [Prinivil] 5 mg PO DAILY tab Nicotine Patch [Nicoderm] 21 mg TD DAILY PRN patch PRN Reason: smoking Continue Bisacodyl Supp [Dulcolax] 10 mg RECTALLY PRN PRN PRN Reason: Constipation Magnesium Citrate [Citroma] 296 ml PO Q2D PRN PRN Reason: Constipation Artificial Tears [Tears Naturale] 2 drops EACH EYE BID PRN PRN Reason: Dry Eyes Ibuprofen [Ibu] 600 mg PO Q8H PRN PRN Reason: Pain Magnesium Hydroxide [Milk of Magnesia] 30 ml PO MOWEFR Simvastatin [Zocor] 40 mg PO HS Divalproex Sodium [Depakote] 1,500 mg PO HS Acetaminophen 650 mg PO TID Quetiapine Fumarate [Seroquel] 300 mg PO TID Insulin Aspart [Novolog Flexpen] 5 unit SQ BIDBL Insulin Aspart [Novolog Flexpen] 3 unit SQ WS Ziprasidone HCl [Geodon] 80 mg PO BID Magnesium Hydroxide [Milk of Magnesia] 30 ml PO DAILY PRN PRN Reason: Constipation Ziprasidone HCl [Geodon] 40 mg PO WL Acetaminophen [Acetaminophen Extra Strength] 1,000 mg PO Q8H PRN PRN Reason: Pain Bisacodyl EC TAB [Dulcolax] 10 mg PO DAILY Aspirin [Low Dose Aspirin EC] 81 mg PO DAILY Cetirizine HCl [Zyrtec] 10 mg PO DAILY Divalproex Sodium [Depakote] 1,000 mg PO WB Mag Hydrox/Aluminum Hyd/Simeth [Alum-Mag Hydroxide-Simeth Liq] 30 ml PO Q4H PRN PRN Reason: Prn Orders Guaifenesin Oral Liq [Robitussin Liq] 200 mg PO Q4H PRN PRN Reason: Cough Tramadol [Ultram] 50 mg PO Q4-6HPRN PRN PRN Reason: Pain Ibuprofen [Ibu] 600 mg PO BID Changed Metformin HCl [Glucophage] 1,000 mg PO BIDWM #0 Discontinued Levofloxacin [Levaquin] 250 mg PO HS - Discharge Packet/Instructions *Diet: 2000 KCAL ADA *Activity: Weight bearing as tolerated *Pain Management/Treatment: Continue current pain medications or tramadol, tylenol, ibuprofen. *Wound Care: May wrap wound in DURGA wrap. Additional Instructions: Will need weekly BMP, CBC and CRP while on antiboitics -- results to Dr Loera. May follow with Dr Loera as needed for ID care. Routine PICC line care. IS q2 hours while awake for pulmonary toilet. Would recommend continuing SCD and Lovenox while on skilled. May use nicotine patch while on skilled care. *Expected Signs/Symptoms: Improvement of functional status. Resolution of knee infection. *Notify Physician if: Temp > 100.4. Uncontrolled pain. *During Business Hours Contact: Nursing staff on skilled. *After Business Hours Contact: Nursing staff on skilled. *Pending Lab/Results: Follow up w/your PCP ([facility]) - Referrals/Follow Up *Referrals/Follow Up: Humaira Carranza MD [Primary Care Provider] - (Follow up 1 week after return to [facility]. ) Kirstin Vasquez MD [Physician] - (Will follow while on detention. ) Alma Delia Loera MD [Physician] - (As needed for ID care. ) Janusz Leahy MD [Physician] - 2 Weeks (Ortho follow up in 2 weeks. ) - Patient Handouts Patient Handouts: Cellulitis (GEN), Sepsis (GEN) - Dismissal Complete Discharge Instructions are:: Complete Physician Narrative - Narrative Physician: Fernando Mcdaniel MD Attestation Narrative: Date: 10/22/17 Time: [id number] I have independently interviewed and examined patient prior to discharge. See my progress not for details. Medically stable for discharge to skilled care.
== END 2017-10-22 16:10 | DRG 853 ==
LOC: ED 15:59 → SUATTDRO 17:24 → EDHOLD 17:24 → MED 17:57
PROVIDERS: ADMIT Internal Medicine; ATTEND Hospitalist